=== PATIENT | male | born 1990 | race Caucasian/White ===

== ENCOUNTER → 2017-09-16 14:42 | Outpatient (CLI) | payer SELFPAY ==
[2017-09-16 17:52] LABS: Hematocrit 45.8 % (40-54); Hemoglobin 15.9 g/dl (13.0-16.5); Mean Corp Hgb Conc 34.7 g/gl (32-36); Mean Corpuscular Hgb 32.4 pg (27.0-32.0); Mean Corpuscular Volume 93.5 fL (80-94); Mean Platelet Vol. 9.7 fl (6.2-12.0); Platelet Count 287 K/mm3 (150-450); RBC Distribution Width CV 13.3 % (11.6-14.6); RBC Distribution Width SD 45.5 fl (35.1-43.9); White Blood Count 11.6 K/mm3 (4.4-11.0)
[2017-09-16 17:56] LABS: Scan Indicated on CBC? Y/N NO
[2017-09-16 19:12] LABS: Albumin, Serum 3.9 g/dL (3.2-5.0); BUN 14 mg/dL (7-18); BUN/Creat Ratio 19.7 RATIO (10-20); Calcium,Total 8.8 mg/dL (8.5-10.1); Chloride 104 mmol/L (98-107); Creatinine, Serum 0.71 mg/dL (0.70-1.30); EST Glomerular Filtration Rate 142 mL/min (>60); Est Glom Filt Rate - Afr Amer 172 mL/min (>60); Glucose 100 mg/dL (74-106); Phosphorus 4.4 mg/dL (2.5-4.9); Potassium 3.5 mmol/L (3.5-5.1); Sodium Level 140 mmol/L (136-145)
[2017-09-17 04:52] LABS: 24HR. UA Prot. Total Volume 3000 mL
== END ==
PROVIDERS: Family Provider Family Medicine; PCP Family Medicine; Visit Provider Internal Medicine Nephrology
DX: N04.9 Nephrotic syndrome with unspecified morphologic changes (principal)
CPT/HCPCS: 36415; 80069; 84156; 85027

== ENCOUNTER → 2017-12-22 13:43 | Outpatient (CLI) | payer SELFPAY ==
[2017-12-22 14:27] LABS: Protein, Urine (Random) 12.7 mg/dL (<11.9); Protein:Creat Ratio 103 mg/g CRE (0-200)
[2017-12-22 15:05] LABS: Albumin, Serum 3.7 g/dL (3.2-5.0); BUN 13 mg/dL (7-18); BUN/Creat Ratio 13.3 RATIO (10-20); Calcium,Total 8.2 mg/dL (8.5-10.1); Chloride 108 mmol/L (98-107); Cholesterol 128 mg/dL (200); Creatinine, Serum 0.98 mg/dL (0.70-1.30); EST Glomerular Filtration Rate 98 mL/min (>60); Est Glom Filt Rate - Afr Amer 119 mL/min (>60); Glucose 168 mg/dL (74-106); High Density Lipoprotein 42 mg/dL; Phosphorus 3.1 mg/dL (2.5-4.9); Potassium 3.6 mmol/L (3.5-5.1); Sodium Level 142 mmol/L (136-145); Triglycerides 177 mg/dL; Very Low Density Lipoprotein 35 mg/dL (5-40)
[2017-12-22 15:09] LABS: Hemoglobin A1c 7.2 % (4.2-6.3)
== END ==
PROVIDERS: Nurse Practitioner; Family Provider Family Medicine; PCP Family Medicine; Visit Provider Internal Medicine Nephrology
DX: E10.9 Type 1 diabetes mellitus without complications (principal); E78.5 Hyperlipidemia, unspecified; N04.0 Nephrotic syndrome with minor glomerular abnormality
CPT/HCPCS: 36415; 80061; 80069; 82570; 83036; 84156

== ENCOUNTER → 2018-02-16 16:21 | Outpatient (CLI) | payer SELFPAY ==
[2018-02-16 18:11] LABS: Protein, Urine (Random) 1125.6 mg/dL (<11.9); Protein:Creat Ratio 7215 mg/g CRE (0-200)
== END ==
PROVIDERS: Family Provider Family Medicine; PCP Family Medicine; Visit Provider Internal Medicine Nephrology
DX: N04.9 Nephrotic syndrome with unspecified morphologic changes (principal)
CPT/HCPCS: 82570; 84156

== ENCOUNTER → 2018-04-09 14:29 | Outpatient (CLI) | payer SELFPAY ==
[2018-04-09 15:33] LABS: Protein, Urine (Random) 13.7 mg/dL (<11.9); Protein:Creat Ratio 98 mg/g CRE (0-200)
== END ==
PROVIDERS: Family Provider Family Medicine; PCP Family Medicine; Referring Provider Internal Medicine Nephrology; Visit Provider Internal Medicine Nephrology
DX: N04.0 Nephrotic syndrome with minor glomerular abnormality (principal)
CPT/HCPCS: 82570; 84156

== ENCOUNTER → 2018-06-25 14:48 | Outpatient (CLI) | payer SELFPAY ==
[2018-06-25 16:14] LABS: Anion Gap 7 (5-15); BUN 14 mg/dL (7-18); BUN/Creat Ratio 15.7 RATIO (10-20); Calcium,Total 8.6 mg/dL (8.5-10.1); Chloride 106 mmol/L (98-107); Creatinine, Serum 0.89 mg/dL (0.70-1.30); EST Glomerular Filtration Rate 109 mL/min (>60); Est Glom Filt Rate - Afr Amer 132 mL/min (>60); Glucose 127 mg/dL (74-106); Potassium 3.9 mmol/L (3.5-5.1); Sodium Level 142 mmol/L (136-145)
[2018-06-25 16:24] LABS: Protein, Urine (Random) 8.2 mg/dL (<11.9); Protein:Creat Ratio 99 mg/g CRE (0-200)
== END ==
PROVIDERS: Family Provider Family Medicine; PCP Family Medicine; Referring Provider Internal Medicine Nephrology; Visit Provider Internal Medicine Nephrology
DX: N04.9 Nephrotic syndrome with unspecified morphologic changes (principal)
CPT/HCPCS: 36415; 80048; 82570; 84156

== ENCOUNTER → 2018-07-16 14:24 | Outpatient (CLI) | payer SELFPAY ==
[2018-07-13 14:22] VITALS: BMI 26.2
[2018-07-16 15:26] LABS: Anion Gap 6 (5-15); BUN 43 mg/dL (7-18); BUN/Creat Ratio 42.6 RATIO (10-20); Calcium,Total 7.5 mg/dL (8.5-10.1); Chloride 105 mmol/L (98-107); Creatinine, Serum 1.01 mg/dL (0.70-1.30); EST Glomerular Filtration Rate 94 mL/min (>60); Est Glom Filt Rate - Afr Amer 114 mL/min (>60); Glucose 261 mg/dL (74-106); Potassium 5.3 mmol/L (3.5-5.1); Sodium Level 137 mmol/L (136-145)
[2018-07-19 09:22] LABS: Protein:Creat Ratio 8070 mg/g CRE (0-200)
== END ==
PROVIDERS: Family Provider Family Medicine; PCP Family Medicine; Referring Provider Internal Medicine Nephrology; Visit Provider Internal Medicine Nephrology
DX: N04.9 Nephrotic syndrome with unspecified morphologic changes (principal)
CPT/HCPCS: 36415; 80048; 82570; 84156

== ENCOUNTER → 2018-07-19 14:58 | Outpatient (CLI) | payer SELFPAY ==
[2018-07-13 14:22] VITALS: BMI 26.2
[2018-07-19 16:21] LABS: Anion Gap 8 (5-15); BUN 63 mg/dL (7-18); BUN/Creat Ratio 54.8 RATIO (10-20); Calcium,Total 7.7 mg/dL (8.5-10.1); Chloride 104 mmol/L (98-107); Creatinine, Serum 1.15 mg/dL (0.70-1.30); EST Glomerular Filtration Rate 81 mL/min (>60); Est Glom Filt Rate - Afr Amer 98 mL/min (>60); Glucose 195 mg/dL (74-106); Potassium 4.7 mmol/L (3.5-5.1); Sodium Level 139 mmol/L (136-145)
== END ==
PROVIDERS: Family Provider Family Medicine; PCP Family Medicine; Referring Provider Internal Medicine Nephrology; Visit Provider Internal Medicine Nephrology
DX: E87.5 Hyperkalemia (principal)
CPT/HCPCS: 36415; 80048

== ENCOUNTER → 2018-07-21 14:02 | Outpatient (CLI) | payer SELFPAY ==
[2018-07-13 14:22] VITALS: BMI 26.2
[2018-07-21 17:44] LABS: Albumin, Serum 1.5 g/dL (3.2-5.0); BUN 76 mg/dL (7-18); BUN/Creat Ratio 37.1 RATIO (10-20); Calcium,Total 7.9 mg/dL (8.5-10.1); Chloride 101 mmol/L (98-107); Creatinine, Serum 2.05 mg/dL (0.70-1.30); EST Glomerular Filtration Rate 42 mL/min (>60); Est Glom Filt Rate - Afr Amer 50 mL/min (>60); Glucose 262 mg/dL (74-106); Phosphorus 5.3 mg/dL (2.5-4.9); Potassium 4.9 mmol/L (3.5-5.1); Sodium Level 134 mmol/L (136-145)
--- OUTSIDE RECORDS SUMMARY | 2018-09-25 11:10 | XMS RPT_ITS ---
:1990 Author Organization OHIP Support Name Relationship Address Phone BUETC Unavailable [address] + [place] [address] ANTHONY, DANIELLA Unavailable [address] + [place] [address] [employer] Unavailable [address] + [place] [address] ANTHONYRADHAA Unavailable [address] + [place] [address] [employer] Unavailable [address] + [place] [address] ANTHONYRADHAA Unavailable [address] + [place] [address] [employer] Unavailable [address] + [place] [address] ANTHONYRADHAA Unavailable [address] + [place] [address] [employer] Unavailable [address] + [place] [address] ANTHONYRADHAA Unavailable [address] + [place] [address] [employer] Unavailable [address] + [place] [address] ANTHONYRADHAA Unavailable [address] + [place] [address] [employer] Unavailable [address] + [place] [address] ANTHONYRADHAA Unavailable [address] + [place] [address] [employer] Unavailable [address] + [place] [address] DANIELLA ROCKWELL Unavailable [address] + [place] [address] [employer] Unavailable [address] + [place] [address] DANIELLA ROCKWELL Unavailable [address] + [place] [address] [employer] Unavailable [address] + [place] [address] ANTHONY, DANIELLA Unavailable [address] + [place] [address] [employer] Unavailable [address] + [place] [address] ANTHONY, DANIELLA Unavailable [address] + [place] [address] [employer] Unavailable [address] + [place] [address] ANTHONY, DANIELLA Unavailable [address] + [place] [address] Care Team Providers Name Role Phone Ander, Lissy Attending Unavailable Antonio, Timothy Primary Care Unavailable Ander, Lissy Referring Unavailable Brooke Mendoza NURSE CONSULTANT-C Attending Unavailable Antonio, Timothy Referring Unavailable Ander, Lissy Attending Unavailable Antonio, Timothy Primary Care Unavailable Ander, Lissy Referring Unavailable Ander, Lissy Attending Unavailable Antonio, Timothy Primary Care Unavailable Ander, Lissy Attending Unavailable Ander, Lissy Referring Unavailable Antonio, Timothy Primary Care Unavailable Ander, Lissy Attending Unavailable Antonio, Timothy Primary Care Unavailable Brooke Mendoza NURSE CONSULTANT-C Attending Unavailable Antonio, Timothy Referring Unavailable Antonio, Timothy Primary Care Unavailable Ander, Lissy Attending Unavailable Antonio, Timothy Primary Care Unavailable Ander, Lissy Referring Unavailable Ander, Lissy Attending Unavailable Antonio, Timothy Primary Care Unavailable Ander, Lissy Referring Unavailable Ander, Lissy Attending Unavailable Antonio, Timothy Primary Care Unavailable Ander, Lissy Attending Unavailable Antonio, Timothy Primary Care Unavailable Ander, Lissy Referring Unavailable Ander, Lissy Attending Unavailable Antonio, Timothy Primary Care Unavailable Ander, Lissy Referring Unavailable PROBLEMS PROBLEMS DATE TYPE CONDITION / CODE ATTENDING STATUS SOURCE 07/21/2018 Unknown E87.5 - Alvaro Worthingtonine Active [place] Hyperkalemia / Community E87.5(ICD-10) Hospital Repository 07/13/2018 Unknown E10.9 - Type 1 Brooke Mendoza Active [facility] diabetes mellitus NURSE CONSULTANT-C Community without Hospital complications / Repository E10.9(ICD-10) 04/09/2018 Unknown 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 criteria. Please note revised GLUCOSE reference range effective 2017. LAB L501.1000 7-18 mg/dL High alert BUN 121 Result Comment: Critical Result(s) Called DR. Padilla [place] at: 17:57:15 07/26/2018 by: MARCO STATON LAB L501.1100 0.70-1.30 mg/dL CREAT,SERUM High 1.43 Result Comment: The validity of the calculated GFR AND GFRAA in patients over 70 years has not been determined. Clinical correlation is essential. LAB L501.1110 >60 mL/min Normal EST GFR 63 Result Comment: Non- GFR Calc LAB L501.1115 >60 mL/min Normal EST GFR - AA 76 Result Comment: GFR Calc LAB L501.1300 10-20 RATIO High BUN/CRE 84.6 LAB L501.1800 3.2-5.0 g/dL Low ALB 1.3 LAB L501.2200 8.5-10.1 mg/dL Low CA 7.6 LAB L501.2300 2.5-4.9 mg/dL Normal PHOS 4.8 LAB L501.5300 136-145 mmol/L Low NA 134 LAB L501.5600 3.5-5.1 mmol/L K Normal 4.1 LAB L501.5900 98-107 mmol/L CL Normal 101 LAB L501.6100 21.0-32.0 mmol/L Normal CO2 23.0 Performed By: #### L500.3600 #### [facility] [address] [place], [address] RENAL PROFILE Collected: 07/21/2018 Status: F Source: [place] 2:04 PM [facility] REPOSITORY TYPE CODE TESTS RESULT OUT OF RANGE REFERENCE UNITS LAB L501.0100 74-106 mg/dL High GLU 262 Result Comment: Glucose result greater than or equal to 200 mg/dL suggests DIABETES MELLITUS per A.D.A. criteria. Please note revised GLUCOSE reference range effective 2017. LAB L501.1000 7-18 mg/dL High BUN 76 LAB L501.1100 0.70-1.30 mg/dL High CREAT,SERUM 2.05 Result Comment: The validity of the calculated GFR AND GFRAA in patients over 70 years has not been determined. Clinical correlation is essential. LAB L501.1110 >60 mL/min Low EST GFR 42 Result Comment: Non- GFR Calc LAB L501.1115 >60 mL/min Low EST GFR - AA 50 Result Comment: GFR Calc LAB L501.1300 10-20 RATIO High BUN/CRE 37.1 LAB L501.1800 3.2-5.0 g/dL Low ALB 1.5 LAB L501.2200 8.5-10.1 mg/dL Low CA 7.9 LAB L501.2300 2.5-4.9 mg/dL High PHOS 5.3 LAB L501.5300 136-145 mmol/L Low NA 134 LAB L501.5600 3.5-5.1 mmol/L K Normal 4.9 LAB L501.5900 98-107 mmol/L CL Normal 101 LAB L501.6100 21.0-32.0 mmol/L Normal CO2 23.0 Performed By: #### L500.3600 #### [facility] [address] [place], [address] BASIC METABOLIC Collected: 07/19/2018 Status: F Source: [place] PROFILE (BMP) 3:18 PM [facility] REPOSITORY TYPE CODE TESTS RESULT OUT OF RANGE REFERENCE UNITS LAB L501.0100 74-106 mg/dL High GLU 195 Result Comment: Fasting Glucose result greater than or equal to 126 mg/dL suggests DIABETES MELLITUS per A.D.A. criteria. Please note revised GLUCOSE reference range effective 2017. LAB L501.1000 7-18 mg/dL High BUN 63 LAB L501.1100 0.70-1.30 mg/dL Normal CREAT,SERUM 1.15 Result Comment: The validity of the calculated GFR AND GFRAA in patients over 70 years has not been determined. Clinical correlation is essential. LAB L501.1110 >60 mL/min Normal EST GFR 81 Result Comment: Non- GFR Calc LAB L501.1115 >60 mL/min Normal EST GFR - AA 98 Result Comment: GFR Calc LAB L501.1300 10-20 RATIO High BUN/CRE 54.8 LAB L501.2200 8.5-10.1 mg/dL Low CA 7.7 LAB L501.5300 136-145 mmol/L NA Normal 139 LAB L501.5600 3.5-5.1 mmol/L K Normal 4.7 LAB L501.5900 98-107 mmol/L CL Normal 104 LAB L501.6100 21.0-32.0 mmol/L Normal CO2 27.0 LAB L501.6200 5-15 Normal GAP 8 Performed By: #### L500.2500 #### [facility] [address] [place], [address] BASIC METABOLIC Collected: 07/16/2018 Status: F Source: [place] PROFILE ([facility]) 2:28 PM [facility] REPOSITORY TYPE CODE TESTS RESULT OUT OF RANGE REFERENCE UNITS LAB L501.0100 74-106 mg/dL High GLU 261 Result Comment: Glucose result greater than or equal to 200 mg/dL suggests DIABETES MELLITUS per A.D.A. criteria. Please note revised GLUCOSE reference range effective 2017. LAB L501.1000 7-18 mg/dL High BUN 43 LAB L501.1100 0.70-1.30 mg/dL Normal CREAT,SERUM 1.01 Result Comment: The validity of the calculated GFR AND GFRAA in patients over 70 years has not been determined. Clinical correlation is essential. LAB L501.1110 >60 mL/min Normal EST GFR 94 Result Comment: Non- GFR Calc LAB L501.1115 >60 mL/min Normal EST GFR - AA 114 Result Comment: GFR Calc LAB L501.1300 10-20 RATIO High BUN/CRE 42.6 LAB L501.2200 8.5-10.1 mg/dL Low CA 7.5 LAB L501.5300 136-145 mmol/L NA Normal 137 LAB L501.5600 3.5-5.1 mmol/L High K 5.3 LAB L501.5900 98-107 mmol/L CL Normal 105 LAB L501.6100 21.0-32.0 mmol/L Normal CO2 26.0 LAB L501.6200 5-15 Normal GAP 6 Performed By: #### L500.2500 #### [facility] [address] [place], [place], [address] PROTEIN+CREATININE Collected: Status: C Source: [place] RATIO,URINE 07/16/2018 2:28 PM [facility] REPOSITORY TYPE CODE TESTS RESULT OUT OF RANGE REFERENCE UNITS LAB L501.1200 NO RANGE EST. mg/dL Normal UR CREAT 444.00 LAB L501.1930 <11.9 mg/dL High 3583.7 PROTEIN,UR.R AN. Result Comment: AMENDED REPORT 07/19/18 1522 PROTEIN,UR.RAN. previously reported as: 3583.7 H mg/dL UNABLE TO RESULT DUE TO INTERFERENCE LAB L501.1940 0-200 mg/g CRE High PROT:CRE RATIO 8070 Result Comment: AMENDED REPORT 07/19/18 0922 PROT:CRE RATIO previously reported as: Test not performed mg/g CRE Performed By: #### L501.0900 #### [facility] [address] [place], [place], [address] ENDOCRINOLOGY VISIT Observed: 07/13/2018 Status: F Source: [place] REPORT 3:10 PM [facility] REPOSITORY [facility] [address] [place] [address] OFFICE VISIT Date of Service: 07/13/18 MR#: [id number] Acct: [id number] Name: LORRIE ROCKWELL Rep #: [id number] : 1990 Provider: Brooke Mendoza NP Age/Sex: 28/M Location: [facility] Status: Signed HPI History of present illness Pipe Rockwell is a 28 year old male who presents for diabetes type 1. Diagnosed 4 years ago. Was seeing someone in [place] but does not wish to drive that far and is private pay. Currently taking levemir 20 units in am and 15 in pm. Meal insulin 8-10 units. He is on prednisone therapy due to kidney disease but his dose is down to 10mg. Was started originally at 40mg approximately 4 months ago. Reports currently he is having low BG readings in the afternoon around 2-4pm. 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 At time of visit: -Pt denies symptoms of hypertensive emergency (CP,SOB,CASTELAN, or blurred vision) and hypotension(dizziness or lightheadedness) -Pt denies symptoms of hypoglycemia ( sweaty, confusion, anxiety, tremor, hunger, palpitations) and hyperglycemia ( polydipsia, polyuria) -Pt denies potential medication adverse effect. Hypoglycemia Aware of hypoglycemia: yes Able to self treat low BG: Yes Frequent low Blood sugar: No Has supply of glucagon: No He denies excessive thirst, increased frequency of urination, chest pain or dyspnea. Follows a diabetic diet, Is compliant with medication and is tolerating without side effects. SMBG Checks 4-6 times daily 70-180 Diet 3 meals No carb counting Type: type 1, insulin-requiring Glucose control symptoms: Reports hypoglycemic with activity Weight and fatigue symptoms: Denies snoring Cardiopulmonary symptoms: Denies chest pain at rest, dyspnea on exertion, lightheadedness or myalgias GI symptoms: Denies constipation, diarrhea, nausea/dyspepsia or vomiting Skin and extremity symptoms: Denies erectile dysfunction or tingling/numbness/burning Other symptoms: Denies blurry vision or change in vision Pertinent visit history: Denies recent visit to ER or recent 911 calls Self monitoring: Yes Diabetes education in past year: Yes Glucose testing: demonstrates correct use of meter, understands testing schedule Sick day education - understands ketone testing: Yes Physical activity: regular Exam Const General: comfortable, no acute distress Nutritional Appearance: well nourished Orientation: oriented x3 HENMT Head: normal to inspection, atraumatic Ears: hearing grossly normal bilaterally Mouth: oral mucosae normal, moist mucous membranes abnormal Teeth and gingiva: dentition normal Eyes General: appearance normal, both eyes and all related structures Eyelids: eyelids normal Conjunctivae: conjunctivae normal Sclera: sclerae normal Pupils: PERRL Resp Effort AND Inspection: normal respiratory effort, able to speak in complete sentences, symmetric chest movement Auscultation: Bilateral: Clear to Auscultation Cardio Rate: regular rate Rhythm: regular rhythm Heart Sounds: S1 normal, S2 normal, no gallops, no murmurs, no rubs GI Inspection: normal to inspection Auscultation: normal bowel sounds Palpation: soft, no guarding Skin General: no rashes or lesions noted Wounds: no wounds Diabetic Foot Pulses: L dorsalis pedis pulse: normal, R dorsalis pedis pulse: normal Monofilament test: Left foot: normal, Right foot: normal Neuro General: moves all extremities Cognition: normal cognition Speech: speech normal Extrem General: normal to inspection, normal capillary refill, no edema Psych Appearance: well kempt Mood: congruent mood Affect: normal affect Speech and Movement: speech and movement normal Attitude: cooperative Thought Process: normal Thought Content: normal Judgment: judgment good Type: type 1, insulin-requiring Glucose control symptoms: Reports hypoglycemic with activity Weight and fatigue symptoms: Reports weight gain; denies snoring Cardiopulmonary symptoms: Denies chest pain at rest, dyspnea on exertion, lightheadedness or myalgias GI symptoms: Denies constipation, diarrhea, nausea/dyspepsia or vomiting Skin and extremity symptoms: Denies erectile dysfunction Other symptoms: Denies blurry vision or change in vision Pertinent visit history: Denies recent visit to ER, recent hospital admission or recent 911 calls Percentage of fasting blood glucose within goal: >50% of the time Dietary compliance: Diabetes: good Diabetes education in past year: Yes Glucose testing: demonstrates correct use of meter Sick day education - understands ketone testing: Yes Physical activity: regular Intake Vital Signs07/13/18 Height 5 ft 11 in 07/13/18 Weight: 188 lb 4 oz 07/13/18 Body Mass Index (BMI) 26.2 07/13/18 Blood Pressure 141/78 H 07/13/18 Blood Pressure Location Lt popliteal 07/13/18 Blood Pressure Position Sitting Intake Visit Reasons: Diabetes follow-up [employer] Required: No Accompanied by: Self Allergies No Known Allergies Allergy (Verified 07/13/18 14:19) Medications Lisinopril [Zestril] 10 mg PO DAILY #30 tab 06/02/16 [Rx Confirmed 07/13/18] cyclosporine 100 mg capsule 100 mg PO DAILY cap 07/13/18 [History Confirmed 07/13/18] insulin detemir (U- 100) 100 unit/mL subcutaneous solution See Rx Instructions SC BID ml 07/13/18 [History Confirmed 07/13/18] insulin lispro (U- 100) 100 unit/mL subcutaneous solution See Rx Instructions SC TID ml 07/13/18 [History Confirmed 07/13/18] Nurse's Note: blood sugars : low : 55 high : 205 [facility] Medical History Diabetes mellitus type 1 (Acute) Kidney disease (Acute) Seasonal allergies (Acute) Family History Father Arthritis Heart disease Hypertension Kidney stones Mother Arthritis Social History Smoking Status: Never smoker second hand exposure: No alcohol intake: current substance use type: does not use ROS Const Constitutional: No anorexia, body ache, chills, fatigue, fever(s), frequent falls, decreased energy, malaise, night sweats, weakness, weight change, sleep problems, abnormal sleep pattern, change in appetite, other, headache(s), snoring or excessive sweating Eyes Eyes: No blurry vision, change in vision, double vision, discharge, dry eyes, bulging eyes, floaters, visual disturbances, eye pain, light sensitivity, spots in vision, tunnel vision or other ENT ENT: Positive for nasal congestion and nasal discharge; no abnormal hearing, ear pain, ear discharge, ear pressure, hearing loss, tinnitus, dizziness/vertigo, balance problems, nosebleed/epistaxis, nasal obstruction, nose pain, sinus pressure, sinus pain, post nasal drip, headache(s), facial pain, dental pain, dry mouth, bad breath, hoarseness, lip swelling, mouth lesions, mouth pain, sore throat, tongue swelling, throat swelling, other, difficulty swallowing or neck pain Resp Respiratory: Positive for cough; no change in phlegm color, chest congestion, excessive phlegm production, hemoptysis, pain on inspiration, shortness of breath, pain with cough, snoring, stridor, wheezing or other Cardio Cardiology: No chest pain at rest, chest pain with exertion, leg pain with exertion, excessive sweating, shortness of breath, dyspnea on exertion, generalized swelling, irregular heart rhythm, lightheadedness, orthopnea, radiating jaw, neck or arm pain, fast heart rate, slow heart rate, palpitations or other Gastro GI: No abdominal pain, belching, bloating, change in bowel habits, change in stool character, coffee ground emesis, constipation, cramping, diarrhea, heartburn, difficulty swallowing, feeling full early, excessive flatus, incontinent of stools, Vomiting blood/hematemesis, blood in stool, loose stools, Black,tarry stools, nausea/dyspepsia, pain with swallowing, vomiting or other Genitourinary Male: No difficulty urinating, burning urination, painful urination, urinary incontinence, urinary frequency, urinary urgency, urinary hesitancy, urinary retention, blood in urine, Frequent nighttime urination/ nocturia, post void dribbling, suprapubic fullness, side pain, sexual problems, genital lesions, genital itching, erectile dysfunction, penile discharge, difficulty with ejaculations, blood in semen, scrotal swelling, testicle lump, testicle pain or other Musc Musculoskeletal: No abnormal walking, joint pain, back pain, deformity, joint swelling, limited range of motion, loss of height, muscle cramps, muscle weakness, decreased muscle mass, body aches, neck pain, numbness, radiating pain into limb, stiffness, tingling or other Skin Skin: No acne, hair loss, change in hair, nail changes, boil, change in skin color, dry skin, redness, excessive hair growth, yellowing of the skin, lesions, itching, rash, skin pain, skin ulcer, sores, skin swelling, wounds or other Breast Breast: No other Neuro Neurology: No frequent falls, weakness, visual disturbances, abnormal hearing, headache(s), abnormal walking, numbness or tingling Psych Psychiatric: No abnormal sleep pattern, No change in appetite Endo Endocrine: No fatigue, other or excessive sweating Aller/Imm Allergy/Immunologic: No lip swelling, tongue swelling, throat swelling, wheezing or itchy eyes Assessment AND Plan 1. Type 1 diabetes mellitus without long-term current use of insulin E10.9 Plan Patient brings BG well documented. Checking 3 times daily with BG between 70-180. Reports he continues to see Dr. Worthington for renal issues. Has used prednisone taper for his kidneys and this has caused elevated BG readings. Will update A1c. Enc to continue to [facility] BG, diet, and activity. Control portions Food selections should be healthy Choose more low carb vegetables Avoid snacks and desserts. Drink water Exercise daily Eat more fresh foods, not canned or processed Eat more slowly Orders Orders: Plan Detail Other Medications New: Additional Comments 1. Please schedule follow up in 3 months. 2. Lab work one week before appointment. 3. Discussed importance of regular exercise and recommend starting or continuing a regular exercise program for good health. 4. The patient was encouraged to lose weight for good health 5. The importance of monitoring blood sugar regularly was reviewed. 6. The importance of monitoring the HBA1c level regularly was reviewed. 7. The importance of prper foot care and regularly checking feet to prevent sores and loss of limbs was reviewed. 8. The importance of keeping BP at or below 130/80 to prevent stroke, heart attacks, kidney failure, blindness was reviewed. Spent approximately 10 minutes with patient with over 50% of time spent in discussion and counseling regarding medication adjustment, symptoms and treatment of hypoglycemia, diet adherence, and checking BG before driving. Coding Level of Care Code Off vis,est,level 1 Diagnoses Type 1 diabetes mellitus without long-term current use of insulin E10.9 07/13/18 1510 <Electronically signed by Brooke WOODS> Date Brooke WOODS Cosigner Signature: Date (if applicable) CC: BASIC METABOLIC Collected: 06/25/2018 Status: F Source: [place] PROFILE (BMP) 2:51 PM [facility] REPOSITORY TYPE CODE TESTS RESULT OUT OF RANGE REFERENCE UNITS LAB L501.0100 74-106 mg/dL High GLU 127 Result Comment: Fasting Glucose result greater than or equal to 126 mg/dL suggests DIABETES MELLITUS per A.D.A. criteria. Please note revised GLUCOSE reference range effective 2017. LAB L501.1000 7-18 mg/dL Normal BUN 14 LAB L501.1100 0.70-1.30 mg/dL Normal CREAT,SERUM 0.89 Result Comment: The validity of the calculated GFR AND GFRAA in patients over 70 years has not been determined. Clinical correlation is essential. LAB L501.1110 >60 mL/min Normal EST GFR 109 Result Comment: Non- GFR Calc LAB L501.1115 >60 mL/min Normal EST GFR - AA 132 Result Comment: GFR Calc LAB L501.1300 10-20 RATIO Normal BUN/CRE 15.7 LAB L501.2200 8.5-10.1 mg/dL CA Normal 8.6 LAB L501.5300 136-145 mmol/L NA Normal 142 LAB L501.5600 3.5-5.1 mmol/L K Normal 3.9 LAB L501.5900 98-107 mmol/L CL Normal 106 LAB L501.6100 21.0-32.0 mmol/L Normal CO2 29.0 LAB L501.6200 5-15 Normal GAP 7 Performed By: #### L500.2500 #### [facility] [address] [place], [place], [id number] PROTEIN+CREATININE Collected: Status: F Source: [place] HICKEY,URINE 06/25/2018 2:51 PM [facility] REPOSITORY TYPE CODE TESTS RESULT OUT OF RANGE REFERENCE UNITS LAB L501.1200 NO RANGE EST. mg/dL Normal UR CREAT 82.70 LAB L501.1930 <11.9 mg/dL Normal 8.2 PROTEIN,UR.R AN. LAB L501.1940 0-200 mg/g CRE Normal PROT:CRE 99 RATIO Performed By: #### L501.0900 #### [facility] [address] [place], [place], [address] PROTEIN+CREATININE Collected: Status: F Source: [place] HICKEY,URINE 04/09/2018 2:32 PM [facility] REPOSITORY TYPE CODE TESTS RESULT OUT OF RANGE REFERENCE UNITS LAB L501.1200 NO RANGE EST. mg/dL Normal UR CREAT 140.00 LAB L501.1930 <11.9 mg/dL High 13.7 PROTEIN,UR.R AN. LAB L501.1940 0-200 mg/g CRE Normal PROT:CRE 98 RATIO Performed By: #### L501.0900 #### [facility] [address] [place], [address] PROTEIN+CREATININE Collected: Status: F Source: [place] HICKEYURINE 02/16/2018 4:37 PM [facility] REPOSITORY TYPE CODE TESTS RESULT OUT OF RANGE REFERENCE UNITS LAB L501.1200 NO RANGE EST. mg/dL Normal UR CREAT 156.00 LAB L501.1930 <11.9 mg/dL High 1125.6 PROTEIN,UR.R AN. LAB L501.1940 0-200 mg/g CRE High PROT:CRE 7215 RATIO Performed By: #### L501.0900 #### [facility] [address] [place], [address] PROTEIN+CREATININE Collected: Status: F Source: [place] HICKEY,URINE 12/22/2017 1:57 PM [facility] REPOSITORY TYPE CODE TESTS RESULT OUT OF RANGE REFERENCE UNITS LAB L501.1200 NO RANGE EST. mg/dL Normal UR CREAT 123.00 LAB L501.1930 <11.9 mg/dL High 12.7 PROTEIN,UR.R AN. LAB L501.1940 0-200 mg/g CRE Normal PROT:CRE 103 RATIO Performed By: #### L501.0900 #### [facility] [address] [place], [address] RENAL PROFILE Collected: 12/22/2017 Status: F Source: [place] 1:57 PM [facility] REPOSITORY Order Comment: PT NOT FASTING TYPE CODE TESTS RESULT OUT OF RANGE REFERENCE UNITS LAB L501.0100 74-106 mg/dL High GLU 168 Result Comment: Fasting Glucose result greater than or equal to 126 mg/dL suggests DIABETES MELLITUS per A.D.A. criteria. Please note revised GLUCOSE reference range effective 2017. LAB L501.1000 7-18 mg/dL Normal BUN 13 LAB L501.1100 0.70-1.30 mg/dL Normal CREAT,SERUM 0.98 Result Comment: The validity of the calculated GFR AND GFRAA in patients over 70 years has not been determined. Clinical correlation is essential. LAB L501.1110 >60 mL/min Normal EST GFR 98 Result Comment: Non- GFR Calc LAB L501.1115 >60 mL/min Normal EST GFR - AA 119 Result Comment: GFR Calc LAB L501.1300 10-20 RATIO Normal BUN/CRE 13.3 LAB L501.1800 3.2-5.0 g/dL Normal ALB 3.7 LAB L501.2200 8.5-10.1 mg/dL Low CA 8.2 LAB L501.2300 2.5-4.9 mg/dL Normal PHOS 3.1 LAB L501.5300 136-145 mmol/L NA Normal 142 LAB L501.5600 3.5-5.1 mmol/L K Normal 3.6 LAB L501.5900 98-107 mmol/L High CL 108 LAB L501.6100 21.0-32.0 mmol/L Normal CO2 28.0 Performed By: #### L500.3600, L500.4100 #### [facility] [address] [place], [address] LIPID PROFILE Collected: 12/22/2017 Status: F Source: [place] 1:57 PM [facility] REPOSITORY Order Comment: PT NOT FASTING TYPE CODE TESTS RESULT OUT OF RANGE REFERENCE UNITS LAB L501.4900 200 mg/dL Normal CHOL 128 Result Comment: <200 mg/dL Desirable 200-240 mg/dL Borderline >240 mg/dL High Risk LAB L501.5000 mg/dL Normal TRIG 177 Result Comment: The drugs N-Acetylcysteine and Metamizole may falsely depress this assay. Serum Triglycerides Reference Interval Normal <150 mg/dL Borderline high 150 - 199 mg/dL High 200 - 499 mg/dL Very High > or = 500 mg/dL LAB L501.6400 mg/dL Normal HDL 42 Result Comment: The drugs N-Acetylcysteine and Metamizole may falsely depress this assay. Reference Range HDL <40 mg/dL Low HDL Cholesterol HDL >or= 60 mg/dL High HDL Cholesterol LAB L501.6500 0-130 mg/dL Normal LDL 51 LAB L501.6600 5-40 mg/dL Normal VLDL 35 Performed By: #### L500.3600, L500.4100 #### [facility] [address] [place], [address] HEMOGLOBIN A1C Collected: 12/22/2017 Status: F Source: [place] 1:56 PM [facility] REPOSITORY TYPE CODE TESTS RESULT OUT OF RANGE REFERENCE UNITS LAB L501.9985 4.2-6.3 % High HGB A1C 7.2 Performed By: #### L501.9985 #### [facility] [address] [place], [address] ENDOCRINOLOGY VISIT Observed: 11/04/2017 Status: F Source: [place] REPORT 9:56 AM [facility] REPOSITORY [facility] [address] [place] [address] OFFICE VISIT Date of Service: 11/03/17 MR#: [id number] Acct: [id number] Name: LORRIE ROCKWELL Rep #: [id number] : 1990 Provider: Brooke Mendoza NP Age/Sex: 27/M Location: [facility] [place] [facility] Status: Signed HPI History of present illness Brain Anthony is a 27 year old male who presents for diabetes type 1. Diagnosed 4 years ago. Was seeing someone in [place] but does not wish to drive that far and is private pay. Currently taking 46 units of levemir daily and meal insulin 8-10 units. He is on prednisone therapy due to kidney disease but his dose is down to 10mg. Was started originally at 40mg approximately 4 months ago. Reports currently he is having low BG readings in the afternoon around 2-4pm. 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 At time of visit: -Pt denies symptoms of hypertensive emergency (CP,SOB,CASTELAN, or blurred vision) and hypotension(dizziness or lightheadedness) -Pt denies symptoms of hypoglycemia ( sweaty, confusion, anxiety, tremor, hunger, palpitations) and hyperglycemia ( polydipsia, polyuria) -Pt denies potential medication adverse effect. Hypoglycemia Aware of hypoglycemia: yes Able to self treat low BG: Yes Frequent low Blood sugar: No Has supply of glucagon: No He denies excessive thirst, increased frequency of urination, chest pain or dyspnea. Follows a diabetic diet, Is compliant with medication and is tolerating without side effects. SMBG Checks 4-6 times daily 60-180 Diet 3 meals No carb counting Type: type 1, insulin-requiring Glucose control symptoms: Reports hypoglycemic with activity Weight and fatigue symptoms: Denies snoring Cardiopulmonary symptoms: Denies chest pain at rest, dyspnea on exertion, lightheadedness or myalgias GI symptoms: Denies constipation, diarrhea, nausea/dyspepsia or vomiting Skin and extremity symptoms: Denies erectile dysfunction or tingling/numbness/burning Other symptoms: Denies blurry vision or change in vision Pertinent visit history: Denies recent visit to ER or recent 911 calls Self monitoring: Yes Diabetes education in past year: Yes Glucose testing: demonstrates correct use of meter, understands testing schedule Sick day education - understands ketone testing: Yes Physical activity: regular Exam Const General: comfortable, no acute distress Nutritional Appearance: well nourished Orientation: oriented x3 HENMT Head: normal to inspection, atraumatic Ears: hearing grossly normal bilaterally Mouth: oral mucosae normal, moist mucous membranes abnormal Teeth and gingiva: dentition normal Eyes General: appearance normal, both eyes and all related structures Eyelids: eyelids normal Conjunctivae: conjunctivae normal Sclera: sclerae normal Pupils: PERRL Resp Effort AND Inspection: normal respiratory effort, able to speak in complete sentences, symmetric chest movement Auscultation: Bilateral: Clear to Auscultation Cardio Rate: regular rate Rhythm: regular rhythm Heart Sounds: S1 normal, S2 normal, no gallops, no murmurs, no rubs GI Inspection: normal to inspection Auscultation: normal bowel sounds Palpation: soft, no guarding Skin General: no rashes or lesions noted Wounds: no wounds Diabetic Foot Pulses: L dorsalis pedis pulse: normal, R dorsalis pedis pulse: normal Monofilament test: Left foot: normal, Right foot: normal Neuro General: moves all extremities Cognition: normal cognition Speech: speech normal Extrem General: normal to inspection, normal capillary refill, no edema Psych Appearance: well kempt Mood: congruent mood Affect: normal affect Speech and Movement: speech and movement normal Attitude: cooperative Thought Process: normal Thought Content: normal Judgment: judgment good Intake Vital Signs11/03/17 Height 5 ft 11 in 11/03/17 Weight: 159 lb 2 oz 11/03/17 Body Mass Index (BMI) 22.1 11/03/17 Blood Pressure 112/70 05/01/18 Blood Pressure Location Lt popliteal 11/03/17 Blood Pressure Position Sitting Intake Visit Reasons: Diabetes [employer] Caster Required: No Accompanied by: Family / Other Is patient in pain?: No Allergies No Known Allergies Allergy (Verified 11/03/17 13:48) Medications Lisinopril [Zestril] 10 mg PO DAILY #30 tab 06/02/16 [Rx Confirmed 11/03/17] insulin detemir (U-100) 100 unit/mL subcutaneous solution 46 unit SC QDAY ml 11/03/17 [History Confirmed 11/03/17] insulin lispro (U-100) 100 unit/mL subcutaneous solution See Label Instructions SC TID ml 11/03/17 [History Confirmed 11/03/17] prednisone 10 mg tablet 10 mg PO QDAY 11/03/17 [History Confirmed 11/03/17] Nurse's Note: blood sugars : low : 55 high : 220 PFSH Medical History Diabetes mellitus type 1 (Acute) Kidney disease (Acute) Seasonal allergies (Acute) Family History Father Arthritis Heart disease Hypertension Kidney stones Mother Arthritis Social History Smoking Status: Never smoker second hand exposure: No alcohol intake: current substance use type: does not use ROS Const Constitutional: No anorexia, body ache, chills, fatigue, fever(s), frequent falls, decreased energy, malaise, night sweats, weakness, weight change, sleep problems, abnormal sleep pattern, change in appetite, other, headache(s), snoring or excessive sweating Eyes Eyes: Positive for other (05/22); no blurry vision, change in vision, double vision, discharge, dry eyes, bulging eyes, floaters, visual disturbances, eye pain, light sensitivity, spots in vision or tunnel vision ENT ENT: Positive for nasal congestion and nasal discharge; no abnormal hearing, ear pain, ear discharge, ear pressure, hearing loss, tinnitus, dizziness/vertigo, balance problems, nosebleed/epistaxis, nasal obstruction, nose pain, sinus pressure, sinus pain, post nasal drip, headache(s), facial pain, dental pain, dry mouth, bad breath, hoarseness, lip swelling, mouth lesions, mouth pain, sore throat, tongue swelling, throat swelling, other, difficulty swallowing or neck pain Resp Respiratory: No cough, change in phlegm color, chest congestion, excessive phlegm production, hemoptysis, pain on inspiration, shortness of breath, pain with cough, snoring, stridor, wheezing or other Cardio Cardiology: No chest pain at rest, chest pain with exertion, leg pain with exertion, excessive sweating, shortness of breath, dyspnea on exertion, generalized swelling, irregular heart rhythm, lightheadedness, orthopnea, radiating jaw, neck or arm pain, fast heart rate, slow heart rate, palpitations or other Gastro GI: No abdominal pain, belching, bloating, change in bowel habits, change in stool character, coffee ground emesis, constipation, cramping, diarrhea, heartburn, difficulty swallowing, feeling full early, excessive flatus, incontinent of stools, Vomiting blood/hematemesis, blood in stool, loose stools, Black,tarry stools, nausea/dyspepsia, pain with swallowing, vomiting or other Genitourinary Male: No difficulty urinating, burning urination, painful urination, urinary incontinence, urinary frequency, urinary urgency, urinary hesitancy, urinary retention, blood in urine, Frequent nighttime urination/ nocturia, post void dribbling, suprapubic fullness, side pain, sexual problems, genital lesions, genital itching, erectile dysfunction, penile discharge, difficulty with ejaculations, blood in semen, scrotal swelling, testicle lump, testicle pain or other Musc Musculoskeletal: No abnormal walking, joint pain, back pain, deformity, joint swelling, limited range of motion, loss of height, muscle cramps, muscle weakness, decreased muscle mass, body aches, neck pain, numbness, radiating pain into limb, stiffness, tingling or other Skin Skin: No acne, hair loss, change in hair, nail changes, boil, change in skin color, dry skin, redness, excessive hair growth, yellowing of the skin, lesions, itching, rash, skin pain, skin ulcer, sores, skin swelling, wounds or other Breast Breast: No other Neuro Neurology: No frequent falls, weakness, visual disturbances, abnormal hearing, headache(s), abnormal walking, numbness or tingling Psych Psychiatric: No abnormal sleep pattern, No change in appetite Endo Endocrine: No fatigue, other or excessive sweating Aller/Imm Allergy/Immunologic: No lip swelling, tongue swelling, throat swelling, wheezing or itchy eyes Assessment AND Plan 1. Type 1 diabetes mellitus without long-term current use of insulin E10.9 Plan Split levemir to 33 in am and 10 in pm Reduce lunch insulin by 1-2 units Correction 1-30 Check BG in pairs Carb counting RTC 4 months Orders Orders: Plan Detail Additional Comments 1. Please schedule follow up in 3 months. 2. Lab work one week before appointment. 3. Discussed importance of regular exercise and recommend starting or continuing a regular exercise program for good health. 4. The patient was encouraged to lose weight for good health 5. The importance of monitoring blood sugar regularly was reviewed. 6. The importance of monitoring the HBA1c level regularly was reviewed. 7. The importance of prper foot care and regularly checking feet to prevent sores and loss of limbs was reviewed. 8. The importance of keeping BP at or below 130/80 to prevent stroke, heart attacks, kidney failure, blindness was reviewed. Spent approximately 30 minutes with patient with over 50% of time spent in discussion and counseling regarding medication adjustment, symptoms and treatment of hypoglycemia, diet adherence, and checking BG before driving. Coding Level of Care Code Off vis,est,level 3 Diagnoses Type 1 diabetes mellitus without long-term current use of insulin E10.9 Time Spent (min) 30 Depression Screen PHQ-2/9 PHQ-2 Over the last 2 weeks, how often have you been bothered by any of the following problems? 1. Little interest or pleasure in doing things: not at all 2. Feeling down, depressed, or hopeless: not at all Total score: 0 If score is 2 or greater, continue Source: Developed by Drs. Hans Landaverde, Dianna Nur, Colby Marie and colleagues, with an educational garland from [employer]. Scoring: Total Score Depression Severity Action 1-4 Minimal depression No action needed 5-9 Mild depression Repeat PHQ-9 at follow up 10-14 Moderate depression Make tx plan,consider counseling, fup, prescription 11/04/17 0956 <Electronically signed by Brooke WOODS> Date Brooke WOODS Cosigner Signature: Date (if applicable) CC: CBC-COMPLETE BLOOD CNT Collected: 09/16/2017 Status: F Source: [place] NO DIFF 3:13 PM [facility] REPOSITORY TYPE CODE TESTS RESULT OUT OF RANGE REFERENCE UNITS LAB L100.1000 4.4-11.0 K/mm3 High WBC 11.6 LAB L100.1200 4.6-6.2 M/mm3 Normal RBC 4.90 LAB L100.1300 13.0-16.5 g/dl Normal HGB 15.9 LAB L100.1400 40-54 % Normal HCT 45.8 LAB L100.1500 80-94 fL Normal MCV 93.5 LAB L100.1600 27.0-32.0 pg High MCH 32.4 LAB L100.1700 32-36 g/gl Normal MCHC 34.7 LAB L100.1810 11.6-14.6 % Normal RDW CV 13.3 LAB L100.1820 35.1-43.9 fl High RDW SD 45.5 LAB L100.1900 150-450 K/mm3 Normal PLT 287 LAB L100.2000 6.2-12.0 fl Normal MPV 9.7 Performed By: #### L100.0500 #### [facility] [address] [place], [address] RENAL PROFILE Collected: 09/16/2017 Status: F Source: [place] 3:13 PM [facility] REPOSITORY TYPE CODE TESTS RESULT OUT OF RANGE REFERENCE UNITS LAB L501.0100 74-106 mg/dL Normal GLU 100 Result Comment: Slight Lipemia, Result may be falsely increased. Fasting Glucose result from 100 to 125 mg/dL suggests IMPAIRED HOMEOSTASIS per A.D.A. criteria. Please note revised GLUCOSE reference range effective 2017. LAB L501.1000 7-18 mg/dL Normal BUN 14 Result Comment: Slight Lipemia, Result may be falsely increased. LAB L501.1100 0.70-1.30 mg/dL CREAT,SERUM Normal 0.71 Result Comment: Slight Lipemia, Result may be falsely increased. The validity of the calculated GFR AND GFRAA in patients over 70 years has not been determined. Clinical correlation is essential. LAB L501.1110 >60 mL/min Normal EST GFR 142 Result Comment: Non- GFR Calc LAB L501.1115 >60 mL/min Normal EST GFR - AA 172 Result Comment: GFR Calc LAB L501.1300 10-20 RATIO Normal BUN/CRE 19.7 LAB L501.1800 3.2-5.0 g/dL Normal ALB 3.9 LAB L501.2200 8.5-10.1 mg/dL CA Normal 8.8 Result Comment: Slight Lipemia, Result may be falsely increased. LAB L501.2300 2.5-4.9 mg/dL Normal PHOS 4.4 Result Comment: Slight Lipemia, Result may be falsely increased. LAB L501.5300 136-145 mmol/L Normal NA 140 LAB L501.5600 3.5-5.1 mmol/L Normal K 3.5 Result Comment: Slight Hemolysis, Result may be falsely increased.-Slight Lipemia, Result may be falsely increased. LAB L501.5900 98-107 mmol/L Normal CL 104 LAB L501.6100 21.0-32.0 mmol/L Normal CO2 23.0 Result Comment: Slight Lipemia, Result may be falsely increased. Performed By: #### L500.3600 #### [facility] [address] [place], [place], [address] PROTEIN, URINE 24HR Collected: 09/16/2017 Status: F Source: [place] 3:13 PM [facility] REPOSITORY TYPE CODE TESTS RESULT OUT OF RANGE REFERENCE UNITS LAB L501.1850 24.0 HOURS Normal UR COLLECT 24.0 TIME LAB L501.1875 mL Normal UR TOTAL 3000 VOLUME LAB L501.1900 <11.9 mg/dL Normal URINE PROTEIN 6.0 LAB L501.1925 <150 MG/24HR mg/24HR High 24hr UR 180.0 PROTEIN Performed By: #### L500.9000 #### [facility] [address] [place], [place], [address] ALLERGIES ALLERGIES DATE TYPE / CODE NAME / CODE REACTION SEVERITY SOURCE 07/13/2018 Drug No Known Unknown [facility] Allergy/4160 Allergies/F00 Hospital 96082(SNOMED [id number](RXNOR Repository CT) M) ENCOUNTERS ENCOUNTERS ADMIT/DISCHARGE ACCOUNT ADMITTING ENCOUNTER LOCATION SOURCE NUMBER CLASS 07/26/2018 [id number] Ambulatory [place] [facility] Hospital ing:LAB Repository 07/21/2018 [id number] [facility] ing:POLAB3 Repository 07/19/2018 [id number] [facility] ing:LAB.FUTUR Repository E 07/16/2018 [id number] Ambulatory [facility] [place] 6 [facility] ing:LAB.FUTUR Repository E 07/13/2018/ [id number] Ambulatory BMSBuilding:B [place] 9 0 .[facility] Repository 06/25/2018 [id number] Ambulatory [place] [facility] 5 [facility] ing:LAB.FUTUR Repository E 04/09/2018 [id number] Ambulatory [facility] [place] 0 [facility] Hospital ing:LAB.FUTUR Repository E 02/16/2018 [id number] Ambulatory [place] 8 [facility] Hospital ing:LAB.FUTUR Repository E 02/15/2018 [id number] Ambulatory [place] [facility] 3 [facility] ing:LAB.FUTUR Repository E 12/22/2017 [id number] Ambulatory [place] 2 [facility] ing:LAB.FUTUR Repository E 11/03/2017/ [id number] Ambulatory BMSBuilding:B [place] 8 2 [place].[facility] Repository 09/16/2017 [id number] Ambulatory [facility] [place] 1 [facility] ing:LAB.FUTUR Repository E PAYERS PAYERS ENCOUNTER GUARANTOR PAYER SUBSCRIBER SOURCE 07/26/2018 LORRIE Salazar Primary NOT GIVENUNK [facility] [id number] Insurance:SELF PAY [facility] Number: Effective Repository , [place] [address]Dma: Date:2018-07-26 () 07/21/2018 LORRIE [place]azar Primary NOT GIVENUNK [place] [id number] Insurance:SELF PAY [facility] Number: Effective Repository , [place] [address]Nki: Date:2018-07-21 () 07/19/2018 LORRIE D Primary NOT GIVENUNK [place] [id number] Insurance:SELF PAY [facility] Number: Effective Repository , [place] [address]Dvo: Date:2018-07-19 () 07/16/2018 LORRIE D Primary NOT GIVENUNK [facility] [id number] Insurance:SELF PAY [facility] Number: Effective [place] , [place] [address]Rnq: Date:2018-04-19 () 07/13/2018 LORRIE D Primary NOT GIVENUNK [facility] [id number] Insurance:SELF PAY [facility] Number: Effective [place] , [place] [address]Elz: Date:2018-07-13 () 06/25/2018 LORRIE D Primary NOT GIVENUNK [facility] [id number] Insurance:SELF PAY [facility] Number: Effective [place]ository , [place] [address]Rfy: Date:2018-06-24 () 04/09/2018 LORRIE D Primary NOT GIVENUNK [place] [id number] Insurance:SELF PAY [facility] Number: Effective [place] , [place] [address]Nfe: Date:2018-03-16 () 02/16/2018 LORRIE D Primary NOT GIVENUNK [facility] [id number] Insurance:SELF PAY [facility] Number: Effective Repository , [place] [address]Ljr: Date:2018-02-15 () 02/15/2018 LORRIE Primary NOT GIVENUNK [facility] [id number] Insurance:SELF PAY [facility] Number: Effective [place] , [place] [address]Mhx: Date:2018-02-15 () 12/22/2017 LORRIE Primary NOT GIVENUNK [place] [id number] Insurance:SELF PAY [facility] Number: Effective [place] , [place] [address]Ddb: Date:2017-12-22 () 11/03/2017 LORRIE Primary NOT GIVENUNK [place] [id number] Insurance:SELF PAY [facility] Number: Effective [place] , [place] [address]Koo: Date:2017-11-03 ~330 -4 () 09/16/2017 Lorrie Primary NOT GIVENUNK [facility] [id number] Insurance:SELF PAY [facility] Number: Effective [place] , [place] [address]Pfl: Date:2017-09-07 ()
== END ==
PROVIDERS: Family Provider Family Medicine; PCP Family Medicine; Visit Provider Internal Medicine Nephrology
DX: E78.5 Hyperlipidemia, unspecified (principal)
CPT/HCPCS: 36415; 80069

== ENCOUNTER → 2018-07-26 15:06 | Outpatient (CLI) | payer SELFPAY ==
[2018-07-13 14:22] VITALS: BMI 26.2
[2018-07-26 17:56] LABS: Albumin, Serum 1.3 g/dL (3.2-5.0); BUN 121 mg/dL (7-18); BUN/Creat Ratio 84.6 RATIO (10-20); Calcium,Total 7.6 mg/dL (8.5-10.1); Chloride 101 mmol/L (98-107); Creatinine, Serum 1.43 mg/dL (0.70-1.30); EST Glomerular Filtration Rate 63 mL/min (>60); Est Glom Filt Rate - Afr Amer 76 mL/min (>60); Glucose 221 mg/dL (74-106); Phosphorus 4.8 mg/dL (2.5-4.9); Potassium 4.1 mmol/L (3.5-5.1); Sodium Level 134 mmol/L (136-145)
--- OUTSIDE RECORDS SUMMARY | 2018-09-28 03:31 | XMS RPT_ITS ---
:1990 Author Organization OHIP Support Name Relationship Address Phone [employer] Unavailable [address] + [place] [address] ANTHONY, DANIELLA Unavailable [address] + [place] [address] [employer] Unavailable [address] + [place] [address] ANTHONYRADHAA Unavailable [address] + [place] [address] [employer] Unavailable [address] + [place] [address] ANTHONYRADHAA Unavailable [address] + [place] [address] [employer] Unavailable [address] + [place] [address] ANTHONYRADHAA Unavailable [address] + [place] [address] [employer] Unavailable [address] + [place] [address] ANTHONYRADHAA Unavailable [address] + [place] [address] [employer] Unavailable [address] + [place] [address] ANTHONYRADHAA Unavailable [address] + [place] [address] [employer] Unavailable [address] + [place] [address] ANTHONYRADHAA Unavailable [address] + [place] [address] [employer] Unavailable [address] + [place] [address] DANIELLA ROCKWELL Unavailable [address] + [place] [address] [employer] Unavailable [address] + [place] [address] DANIELLA ROCKWELL Unavailable [address] + [facility] [place] [address] [employer] Unavailable [address] + [place] [address] ANTHONY, DANIELLA Unavailable [address] + [place] [address] [employer] Unavailable [address] + [place] [address] ANTHONY, DANIELLA Unavailable [address] + [place] [place] [address] [employer] Unavailable [address] + [place] [address] ANTHONY, DANIELLA Unavailable [address] + [place] [address] Care Team Providers Name Role Phone Ander, Lissy Attending Unavailable Ander, Lissy Referring Unavailable Antonio, Timothy Primary Care Unavailable Brooke Mendoza [employer]ADER-C Attending Unavailable Antonio, Timothy Referring Unavailable Antonio, Timothy Primary Care Unavailable Ander, Lissy Attending Unavailable Antonio, Timothy Primary Care Unavailable Ander, Lissy Referring Unavailable Brooke Mendoza [employer] TE[employer] LEADER-C Attending Unavailable Antonio, Timothy Referring Unavailable Ander, [...] E10.9 - Type 1 Brooke Mendoza Active [place] diabetes mellitus [employer] TE[employer] LEADER-C [facility] complications / Repository E10.9(ICD-10) 04/09/2018 Unknown N04.0 - Nephrotic Lissy Worthington Active [place] syndrome with minor [facility] abnormality / Repository N04.0(ICD-10) PROCEDURES PROCEDURES No Procedure Records FoundRESULTS RESULTS RENAL PROFILE Collected: 07/26/2018 Status: F Source: [place] 3:11 PM [facility] REPOSITORY TYPE CODE TESTS RESULT OUT [...] CO2 23.0 Performed By: #### L500.3600 #### [facility] [address] [place], [address] RENAL PROFILE Collected: 07/21/2018 Status: F Source: [place] 2:04 PM [facility] REPOSITORY TYPE CODE TESTS RESULT OUT OF [...] CO2 23.0 Performed By: #### L500.3600 #### [facility] [address] [place], [address] BASIC METABOLIC Collected: 07/19/2018 Status: F Source: [place] PROFILE (BMP) 3:18 PM [facility] REPOSITORY TYPE CODE TESTS RESULT OUT OF [...] GAP 8 Performed By: #### L500.2500 #### [facility] [address] [place], [address] BASIC METABOLIC Collected: 07/16/2018 Status: F Source: [place] PROFILE ([facility]) 2:28 PM [facility] REPOSITORY TYPE CODE TESTS RESULT OUT OF [...] GAP 6 Performed By: #### L500.2500 #### [facility] [address] [place], [place], [address] PROTEIN+CREATININE Collected: Status: C Source: [place] RATIO,URINE 07/16/2018 2:28 PM [facility] REPOSITORY TYPE CODE TESTS RESULT OUT OF [...] mg/g CRE Performed By: #### L501.0900 #### [facility] [address] [place], [place], [address] ENDOCRINOLOGY VISIT Observed: 07/13/2018 Status: F Source: [place] REPORT 3:10 PM [facility] REPOSITORY [facility] [address] [place] [address] OFFICE VISIT Date of Service: 07/13/18 MR#: [id number] Acct: [id number] Name: LORRIE ROCKWELL Rep #: [id number] : 1990 Provider: Brooke Mendoza NP Age/Sex: 28/M Location: [facility] Status: Signed HPI History of present illness Pipe Rockwell is a 28 year old male who presents for diabetes type 1. Diagnosed 4 years ago. Was seeing someone in [place] but does not wish to drive that [...] around 2-4pm. 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 Enc to continue to [facility] BG, diet, and activity. Control portions [...] F Source: [place] PROFILE (BMP) 2:51 PM [facility] REPOSITORY TYPE CODE TESTS RESULT OUT OF [...] GAP 7 Performed By: #### L500.2500 #### [facility] [address] [place], [place], [address] PROTEIN+CREATININE Collected: Status: F Source: [place] HICKEY,URINE 06/25/2018 2:51 PM [facility] REPOSITORY TYPE CODE TESTS RESULT OUT OF RANGE REFERENCE UNITS LAB L501.1200 NO RANGE EST. mg/dL Normal UR CREAT 82.70 LAB L501.1930 <11.9 mg/dL Normal 8.2 PROTEIN,UR.R AN. LAB L501.1940 0-200 mg/g CRE Normal PROT:CRE 99 RATIO Performed By: #### L501.0900 #### [facility] [address] [place], [place], [address] PROTEIN+CREATININE Collected: Status: F Source: [place] HICKEY,URINE 04/09/2018 2:32 PM [facility] REPOSITORY TYPE CODE TESTS RESULT OUT OF RANGE REFERENCE UNITS LAB L501.1200 NO RANGE EST. mg/dL Normal UR CREAT 140.00 LAB L501.1930 <11.9 mg/dL High 13.7 PROTEIN,UR.R AN. LAB L501.1940 0-200 mg/g CRE Normal PROT:CRE 98 RATIO Performed By: #### L501.0900 #### [facility] [address] [place], [address] PROTEIN+CREATININE Collected: Status: F Source: [place] HICKEYURINE 02/16/2018 4:37 PM [facility] REPOSITORY TYPE CODE TESTS RESULT OUT OF RANGE REFERENCE UNITS LAB L501.1200 NO RANGE EST. mg/dL Normal UR CREAT 156.00 LAB L501.1930 <11.9 mg/dL High 1125.6 PROTEIN,UR.R AN. LAB L501.1940 0-200 mg/g CRE High PROT:CRE 7215 RATIO Performed By: #### L501.0900 #### [facility] [address] [place], [address] PROTEIN+CREATININE Collected: Status: F Source: [place] HICKEY,URINE 12/22/2017 1:57 PM [facility] REPOSITORY TYPE CODE TESTS RESULT OUT OF RANGE REFERENCE UNITS LAB L501.1200 NO RANGE EST. mg/dL Normal UR CREAT 123.00 LAB L501.1930 <11.9 mg/dL High 12.7 PROTEIN,UR.R AN. LAB L501.1940 0-200 mg/g CRE Normal PROT:CRE 103 RATIO Performed By: #### L501.0900 #### [facility] [address] [place], [address] RENAL PROFILE Collected: 12/22/2017 Status: F Source: [place] 1:57 PM [facility] REPOSITORY Order Comment: PT NOT FASTING TYPE [...] 28.0 Performed By: #### L500.3600, L500.4100 #### [facility] [address] [place], [address] LIPID PROFILE Collected: 12/22/2017 Status: F Source: [place] 1:57 PM [facility] REPOSITORY Order Comment: PT NOT FASTING TYPE [...] 35 Performed By: #### L500.3600, L500.4100 #### [facility] [address] [place], [address] HEMOGLOBIN A1C Collected: 12/22/2017 Status: F Source: [place] 1:56 PM [facility] REPOSITORY TYPE CODE TESTS RESULT OUT OF RANGE REFERENCE UNITS LAB L501.9985 4.2-6.3 % High HGB A1C 7.2 Performed By: #### L501.9985 #### [facility] [address] [place], [address] ENDOCRINOLOGY VISIT Observed: 11/04/2017 Status: F Source: [place] REPORT 9:56 AM [facility] REPOSITORY [place] [facility] [address] [place] [address] OFFICE VISIT Date of Service: 11/03/17 MR#: [id number] Acct: [id number] Name: LORRIE ROCKWELL Rep #: [id number] : 1990 Provider: Brooke Mendoza NP Age/Sex: 27/M Location: [facility] Status: Signed HPI History of present illness Brain Anthony is a 27 year old male who presents for diabetes type 1. Diagnosed 4 years ago. Was seeing someone in [place] but does not wish to drive that [...] around 2-4pm. 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 Scoring: Total Score Depression Severity Action 1-4 Minimal depression No action needed 5-9 Mild depression Repeat PHQ-9 at follow up 10-14 Moderate depression Make tx plan,consider counseling, fup, prescription 11/04/17 0956 <Electronically signed by Brooke WOODS> Date Brooke WOODS Cosigner Signature: Date (if applicable) CC: CBC-COMPLETE BLOOD CNT Collected: 09/16/2017 Status: F Source: [place] NO DIFF 3:13 PM [facility] REPOSITORY TYPE CODE TESTS RESULT OUT OF [...] MPV 9.7 Performed By: #### L100.0500 #### [facility] [address] [place], [address] RENAL PROFILE Collected: 09/16/2017 Status: F Source: [place] 3:13 PM [facility] REPOSITORY TYPE CODE TESTS RESULT OUT OF [...] falsely increased. Performed By: #### L500.3600 #### [facility] [address] [place], [place], [address] PROTEIN, URINE 24HR Collected: 09/16/2017 Status: F Source: [place] 3:13 PM [facility] REPOSITORY TYPE CODE TESTS RESULT OUT OF RANGE REFERENCE UNITS LAB L501.1850 24.0 HOURS Normal UR COLLECT 24.0 TIME LAB L501.1875 mL Normal UR TOTAL 3000 VOLUME LAB L501.1900 <11.9 mg/dL Normal URINE PROTEIN 6.0 LAB L501.1925 <150 MG/24HR mg/24HR High 24hr UR 180.0 PROTEIN Performed By: #### L500.9000 #### [facility] [address] [place], [place], [address] ALLERGIES ALLERGIES DATE TYPE / CODE NAME / CODE REACTION SEVERITY SOURCE 07/13/2018 Drug No Known Unknown [facility] Allergy/4160 Allergies/F00 Hospital [address]15(SNOMED [id number](RXNOR Repository CT) M) ENCOUNTERS ENCOUNTERS ADMIT/DISCHARGE ACCOUNT ADMITTING ENCOUNTER LOCATION SOURCE NUMBER CLASS 07/26/2018 [id number] Ambulatory [place] 8 [facility] Hospital ing:LAB Repository 07/21/2018 [id number] [place] 1 [facility] ing:POLAB3 Repository 07/19/2018 [id number] Amb[place] 3 [facility] ing:LAB.FUTUR Repository E 07/16/2018 [id number] Ambulatory [place] 6 [facility] ing:LAB.FUTUR Repository E 07/13/2018/ [id number] Ambulatory BMSBuilding:B [place] 9 0 [facility] Repository 06/25/2018 [id number] Ambulatory [place] 5 [facility] ing:LAB.FUTUR Repository E 04/09/2018 [id number] Ambulatory [place] 0 [facility] Hospital ing:LAB.FUTUR Repository E 02/16/2018 [id number] Ambulatory [place] 8 [facility] Hospital ing:LAB.FUTUR Repository E 02/15/2018 [id number] Ambulatory [place] 3 [facility] Hospital ing:LAB.FUTUR Repository E 12/22/2017 [id number] Ambulatory [place] 2 [facility] ing:LAB.FUTUR Repository E 11/03/2017/ [id number] Ambulatory BMSBuilding:B [place] 8 2 [facility] Repository 09/16/2017 [id number] Ambulatory [place] 1 [facility] ing:LAB.FUTUR Repository E PAYERS PAYERS ENCOUNTER GUARANTOR PAYER SUBSCRIBER SOURCE 07/26/2018 LORRIE Salazar Primary NOT GIVENUNK [place] [id number] Insurance:SELF PAY [facility] Number: Effective Repository , [place] [address]Wvt: Date:2018-07-26 () 07/21/2018 LORRIE Salazar Primary NOT GIVENUNK [place] [id number] Insurance:SELF PAY [facility] Number: Effective Repository , [place] [address]Oid: Date:2018-07-21 () 07/19/2018 LORRIE D Primary NOT GIVENUNK [place] [id number] Insurance:SELF PAY [facility] Number: Effective Repository , [place] [address]Lzl: Date:2018-07-19 () 07/16/2018 LORRIE D Primary NOT GIVENUNK [place] [id number] Insurance:SELF PAY [facility] Number: Effective Repository , [place] [address]Ptd: Date:2018-04-19 () 07/13/2018 LORRIE D Primary NOT GIVENUNK [place] [id number] Insurance:SELF PAY [facility] Number: Effective Repository , [place] [address]Tia: Date:2018-07-13 () 06/25/2018 LORRIE D Primary NOT GIVENUNK [place] [id number] Insurance:SELF PAY [facility] Number: Effective Repository , [place] [address]Tfx: Date:2018-06-24 () 04/09/2018 LORRIE D Primary NOT GIVENUNK [place] [id number] Insurance:SELF PAY [facility] Number: Effective Repository , [place] [address]Tef: Date:2018-03-16 () 02/16/2018 LORRIE D Primary NOT GIVENUNK [place] [id number] Insurance:SELF PAY [facility] Number: Effective Repository , [place] [address]Lpx: Date:2018-02-15 () 02/15/2018 LORRIE Primary NOT GIVENUNK [place] [id number] Insurance:SELF PAY [facility] Number: Effective Repository , [place] [address]Evs: Date:2018-02-15 () 12/22/2017 LORRIE Primary NOT GIVENUNK [place] [id number] Insurance:SELF PAY [facility] Number: Effective Repository , [place] [address]Xne: Date:2017-12-22 () 11/03/2017 LORRIE Primary NOT GIVENUNK [place] [id number] Insurance:SELF PAY [facility] Number: Effective Repository , [place] [address]Cej: Date:2017-11-03 ~330 -4 () 09/16/2017 Lorrie Primary NOT GIVENUNK [place] [id number] Insurance:SELF PAY [facility] Number: Effective Repository , [place] [address]Iuu: Date:2017-09-07 ()
== END ==
PROVIDERS: Family Provider Family Medicine; PCP Family Medicine; Referring Provider Internal Medicine Nephrology; Visit Provider Internal Medicine Nephrology
DX: N17.9 Acute kidney failure, unspecified (principal)
CPT/HCPCS: 36415; 80069

== ENCOUNTER → 2018-08-27 15:08 | Outpatient (CLI) | payer SELFPAY ==
[2018-07-13 14:22] VITALS: BMI 26.2
[2018-08-27 16:18] LABS: Hemoglobin A1c 7.1 % (4.2-6.3)
[2018-08-27 16:36] LABS: Albumin, Serum 1.5 g/dL (3.2-5.0); BUN 11 mg/dL (7-18); BUN/Creat Ratio 16.9 RATIO (10-20); Calcium,Total 7.9 mg/dL (8.5-10.1); Chloride 103 mmol/L (98-107); Creatinine, Serum 0.65 mg/dL (0.70-1.30); EST Glomerular Filtration Rate 156 mL/min (>60); Est Glom Filt Rate - Afr Amer 189 mL/min (>60); Glucose 234 mg/dL (74-106); Phosphorus 2.2 mg/dL (2.5-4.9); Potassium 3.9 mmol/L (3.5-5.1); Sodium Level 138 mmol/L (136-145)
== END ==
PROVIDERS: Nurse Practitioner; Family Provider Family Medicine; PCP Family Medicine; Referring Provider Internal Medicine Nephrology; Visit Provider Internal Medicine Nephrology
DX: E10.9 Type 1 diabetes mellitus without complications (principal); N40.0 Benign prostatic hyperplasia without lower urinary tract symptoms
CPT/HCPCS: 36415; 80069; 83036

== ENCOUNTER → 2018-08-31 13:26 | Outpatient (CLI) | payer SELFPAY ==
[2018-07-13 14:22] VITALS: BMI 26.2
[2018-08-31 13:51] LABS: Protein, Urine (Random) 65.9 mg/dL (<11.9); Protein:Creat Ratio 1348 mg/g CRE (0-200)
== END ==
PROVIDERS: Family Provider Family Medicine; PCP Family Medicine; Visit Provider Internal Medicine Nephrology
DX: N04.0 Nephrotic syndrome with minor glomerular abnormality (principal)
CPT/HCPCS: 82570; 84156

== ENCOUNTER → 2018-09-16 15:08 | Outpatient (CLI) | payer SELFPAY ==
[2018-07-13 14:22] VITALS: BMI 26.2
[2018-09-16 16:34] LABS: Protein, Urine (Random) 56.5 mg/dL (<11.9); Protein:Creat Ratio 774 mg/g CRE (0-200)
[2018-09-16 16:36] LABS: Albumin, Serum 3.3 g/dL (3.2-5.0); BUN 9 mg/dL (7-18); BUN/Creat Ratio 11.5 RATIO (10-20); Calcium,Total 8.4 mg/dL (8.5-10.1); Chloride 105 mmol/L (98-107); Creatinine, Serum 0.78 mg/dL (0.70-1.30); EST Glomerular Filtration Rate 126 mL/min (>60); Est Glom Filt Rate - Afr Amer 153 mL/min (>60); Glucose 156 mg/dL (74-106); Potassium 3.5 mmol/L (3.5-5.1); Sodium Level 137 mmol/L (136-145)
== END ==
PROVIDERS: Family Provider Family Medicine; PCP Family Medicine; Referring Provider Internal Medicine Nephrology; Visit Provider Internal Medicine Nephrology
DX: N04.0 Nephrotic syndrome with minor glomerular abnormality (principal)
CPT/HCPCS: 36415; 80069; 82570; 84156

== ENCOUNTER → 2018-10-20 | Outpatient (CLI) | payer SELFPAY ==
[2018-07-13 14:22] VITALS: BMI 26.2
[2018-10-20 16:47] LABS: Albumin, Serum 3.6 g/dL (3.2-5.0); BUN 9 mg/dL (7-18); Calcium,Total 8.6 mg/dL (8.5-10.1); Chloride 103 mmol/L (98-107); EST Glomerular Filtration Rate 108 mL/min (>60); Est Glom Filt Rate - Afr Amer 130 mL/min (>60); Glucose 173 mg/dL (74-106); Phosphorus 3.2 mg/dL (2.5-4.9); Potassium 3.7 mmol/L (3.5-5.1); Sodium Level 138 mmol/L (136-145)
[2018-10-20 16:50] LABS: Protein, Urine (Random) 110.8 mg/dL (<11.9); Protein:Creat Ratio 449 mg/g CRE (0-200)
== END | disposition home or self-care (01) ==
LOC: LAB.FUTURE 15:39
PROVIDERS: Family Provider Family Medicine; PCP Family Medicine; Referring Provider Internal Medicine Nephrology; Visit Provider Internal Medicine Nephrology
DX: N04.0 Nephrotic syndrome with minor glomerular abnormality (principal)
CPT/HCPCS: 36415; 80069; 82570; 84156

== ENCOUNTER → 2018-11-17 | Outpatient (CLI) | payer SELFPAY ==
[2018-07-13 14:22] VITALS: BMI 26.2
[2018-11-17 16:51] LABS: Anion Gap 8 (5-15); BUN 11 mg/dL (7-18); BUN/Creat Ratio 14.8 RATIO (10-20); Calcium,Total 9.2 mg/dL (8.5-10.1); Chloride 107 mmol/L (98-107); Creatinine, Serum 0.74 mg/dL (0.70-1.30); EST Glomerular Filtration Rate 134 mL/min (>60); Est Glom Filt Rate - Afr Amer 162 mL/min (>60); Glucose 159 mg/dL (74-106); Potassium 3.5 mmol/L (3.5-5.1); Sodium Level 142 mmol/L (136-145)
== END | disposition home or self-care (01) ==
LOC: LAB.FUTURE 15:36
PROVIDERS: Family Provider Family Medicine; PCP Family Medicine; Referring Provider Internal Medicine Nephrology; Visit Provider Internal Medicine Nephrology
DX: N04.9 Nephrotic syndrome with unspecified morphologic changes (principal)
CPT/HCPCS: 36415; 80048; 82570; 84156

== ENCOUNTER → 2018-11-22 | Outpatient (CLI) | payer SELFPAY ==
[2018-07-13 14:22] VITALS: BMI 26.2
[2018-11-22 13:19] LABS: Protein, Urine (Random) 27.3 mg/dL (<11.9); Protein:Creat Ratio 451 mg/g CRE (0-200)
== END | disposition home or self-care (01) ==
LOC: LAB.FUTURE 09:39
PROVIDERS: Family Provider Family Medicine; PCP Family Medicine; Referring Provider Internal Medicine Nephrology; Visit Provider Internal Medicine Nephrology
DX: N04.9 Nephrotic syndrome with unspecified morphologic changes (principal)
CPT/HCPCS: 82570; 84156

== ENCOUNTER 2018-12-21 12:31 | Outpatient (RCR) | payer SELFPAY ==
[2018-07-13 14:22] VITALS: BMI 26.2
[2018-12-21 13:32] LABS: Protein, Urine (Random) 46.8 mg/dL (<11.9); Protein:Creat Ratio 296 mg/g CRE (0-200)
== END 2018-12-21 13:00 | disposition home or self-care (01) ==
LOC: LAB 12:31
PROVIDERS: Family Provider Family Medicine; PCP Family Medicine; Referring Provider Internal Medicine Nephrology; Visit Provider Internal Medicine Nephrology
DX: N04.9 Nephrotic syndrome with unspecified morphologic changes (principal); N04.0 Nephrotic syndrome with minor glomerular abnormality
CPT/HCPCS: 36415; 82570; 84156

== ENCOUNTER → 2019-02-14 16:22 | Outpatient (CLI) | payer SELFPAY ==
[2018-07-13 14:22] VITALS: BMI 26.2
[2019-02-14 17:00] LABS: Protein:Creat Ratio 262 mg/g CRE (0-200)
[2019-02-14 17:48] LABS: Albumin, Serum 3.9 g/dL (3.2-5.0); BUN 14 mg/dL (7-18); BUN/Creat Ratio 18.5 RATIO (10-20); Calcium,Total 9.1 mg/dL (8.5-10.1); Chloride 104 mmol/L (98-107); Creatinine, Serum 0.76 mg/dL (0.70-1.30); EST Glomerular Filtration Rate 131 mL/min (>60); Est Glom Filt Rate - Afr Amer 158 mL/min (>60); Glucose 146 mg/dL (74-106); Phosphorus 4.1 mg/dL (2.5-4.9); Potassium 3.6 mmol/L (3.5-5.1); Sodium Level 139 mmol/L (136-145)
== END ==
PROVIDERS: Family Provider Family Medicine; PCP Family Medicine; Referring Provider Internal Medicine Nephrology; Visit Provider Internal Medicine Nephrology
DX: N04.9 Nephrotic syndrome with unspecified morphologic changes (principal); N04.0 Nephrotic syndrome with minor glomerular abnormality
CPT/HCPCS: 36415; 80069; 82570; 84156

== ENCOUNTER 2019-03-31 11:47 | Outpatient (RCR) | payer SELFPAY ==
[2018-07-13 14:22] VITALS: BMI 26.2
[2019-03-29 10:03] LABS: Albumin, Serum 1.4 g/dL (3.2-5.0); BUN 61 mg/dL (7-18); BUN/Creat Ratio 22.8 RATIO (10-20); Calcium,Total 7.5 mg/dL (8.5-10.1); Chloride 95 mmol/L (98-107); Creatinine, Serum 2.67 mg/dL (0.70-1.30); EST Glomerular Filtration Rate 31 mL/min (>60); Est Glom Filt Rate - Afr Amer 37 mL/min (>60); Glucose 256 mg/dL (74-106); Phosphorus 4.2 mg/dL (2.5-4.9); Potassium 4.5 mmol/L (3.5-5.1); Sodium Level 127 mmol/L (136-145)
[2019-03-29 10:15] LABS: Protein, Urine (Random) 1640.8 mg/dL (<11.9); Protein:Creat Ratio 3376 mg/g CRE (0-200)
[2019-03-30 13:00] LABS: Anion Gap 8 (5-15); BUN 82 mg/dL (7-18); BUN/Creat Ratio 44.6 RATIO (10-20); Calcium,Total 7.5 mg/dL (8.5-10.1); Chloride 100 mmol/L (98-107); Creatinine, Serum 1.84 mg/dL (0.70-1.30); EST Glomerular Filtration Rate 47 mL/min (>60); Est Glom Filt Rate - Afr Amer 57 mL/min (>60); Glucose 122 mg/dL (74-106); Potassium 4.3 mmol/L (3.5-5.1); Sodium Level 133 mmol/L (136-145)
[2019-03-31 13:10] LABS: Anion Gap 10 (5-15); BUN 95 mg/dL (7-18); BUN/Creat Ratio 67.4 RATIO (10-20); Calcium,Total 7.7 mg/dL (8.5-10.1); Chloride 102 mmol/L (98-107); Creatinine, Serum 1.41 mg/dL (0.70-1.30); EST Glomerular Filtration Rate 64 mL/min (>60); Est Glom Filt Rate - Afr Amer 77 mL/min (>60); Glucose 129 mg/dL (74-106); Potassium 4.5 mmol/L (3.5-5.1); Sodium Level 133 mmol/L (136-145)
== END 2019-03-31 13:00 | disposition home or self-care (01) ==
LOC: LAB 11:47
PROVIDERS: Family Provider Family Medicine; PCP Family Medicine; Referring Provider Internal Medicine Nephrology; Visit Provider Internal Medicine Nephrology
DX: N17.9 Acute kidney failure, unspecified (principal); E87.1 Hypo-osmolality and hyponatremia; N04.0 Nephrotic syndrome with minor glomerular abnormality
CPT/HCPCS: 36415; 80048; 80069; 82570; 84156

== ENCOUNTER 2019-04-09 11:30 | Outpatient (RCR) | payer SELFPAY ==
[2018-07-13 14:22] VITALS: BMI 26.2
[2019-04-05 13:59] LABS: Protein, Urine (Random) 1174.3 mg/dL (<11.9); Protein:Creat Ratio 8099 mg/g CRE (0-200)
[2019-04-05 14:09] LABS: Anion Gap 9 (5-15); BUN 135 mg/dL (7-18); BUN/Creat Ratio 80.4 RATIO (10-20); Calcium,Total 7.7 mg/dL (8.5-10.1); Chloride 104 mmol/L (98-107); Creatinine, Serum 1.68 mg/dL (0.70-1.30); EST Glomerular Filtration Rate 52 mL/min (>60); Est Glom Filt Rate - Afr Amer 63 mL/min (>60); Glucose 177 mg/dL (74-106); Potassium 4.2 mmol/L (3.5-5.1); Sodium Level 135 mmol/L (136-145)
[2019-04-09 12:16] LABS: Anion Gap 7 (5-15); BUN 92 mg/dL (7-18); BUN/Creat Ratio 82.9 RATIO (10-20); Calcium,Total 7.5 mg/dL (8.5-10.1); Chloride 105 mmol/L (98-107); Creatinine, Serum 1.11 mg/dL (0.70-1.30); EST Glomerular Filtration Rate 84 mL/min (>60); Est Glom Filt Rate - Afr Amer 102 mL/min (>60); Glucose 254 mg/dL (74-106); Potassium 4.8 mmol/L (3.5-5.1); Sodium Level 135 mmol/L (136-145)
[2019-04-09 12:25] LABS: Protein, Urine (Random) 958.8 mg/dL (<11.9); Protein:Creat Ratio 11852 mg/g CRE (0-200)
[2019-04-18 08:15] LABS: Protein, Urine (Random) 1198.7 mg/dL (<11.9); Protein:Creat Ratio 10245 mg/g CRE (0-200)
[2019-04-18 08:26] LABS: BUN 80 mg/dL (7-18); Creatinine, Serum 1.31 mg/dL (0.70-1.30); EST Glomerular Filtration Rate 69 mL/min (>60); Est Glom Filt Rate - Afr Amer 84 mL/min (>60)
== END 2019-04-09 18:00 | disposition home or self-care (01) ==
LOC: LAB 11:30
PROVIDERS: Family Provider Family Medicine; PCP Family Medicine; Referring Provider Internal Medicine Nephrology; Visit Provider Internal Medicine Nephrology
DX: N04.9 Nephrotic syndrome with unspecified morphologic changes (principal); E87.1 Hypo-osmolality and hyponatremia
CPT/HCPCS: 36415; 80048; 82565; 82570; 84156; 84520

== ENCOUNTER 2019-04-18 07:24 | Outpatient (RCR) | payer SELFPAY ==
[2018-07-13 14:22] VITALS: BMI 26.2
== END 2019-04-18 07:25 | disposition home or self-care (01) ==
LOC: LAB 07:24
PROVIDERS: Family Provider Family Medicine; PCP Family Medicine; Referring Provider Internal Medicine Nephrology; Visit Provider Internal Medicine Nephrology
DX: N04.9 Nephrotic syndrome with unspecified morphologic changes (principal); N04.0 Nephrotic syndrome with minor glomerular abnormality
CPT/HCPCS: 36415; 80048; 82570; 84156

== ENCOUNTER → 2019-04-26 | Outpatient (CLI) | payer SELFPAY ==
[2018-07-13 14:22] VITALS: BMI 26.2
[2019-04-26 13:18] LABS: Albumin, Serum 0.5 g/dL (3.2-5.0); BUN 69 mg/dL (7-18); BUN/Creat Ratio 49.3 RATIO (10-20); Calcium,Total 7.9 mg/dL (8.5-10.1); Chloride 101 mmol/L (98-107); EST Glomerular Filtration Rate 64 mL/min (>60); Est Glom Filt Rate - Afr Amer 78 mL/min (>60); Glucose 166 mg/dL (74-106); Phosphorus 4.2 mg/dL (2.5-4.9); Sodium Level 130 mmol/L (136-145)
[2019-04-26 13:19] LABS: Protein, Urine (Random) 586.7 mg/dL (<11.9); Protein:Creat Ratio 9961 mg/g CRE (0-200)
== END | disposition home or self-care (01) ==
LOC: POLAB3 11:52
PROVIDERS: Family Provider Family Medicine; PCP Family Medicine; Visit Provider Internal Medicine Nephrology
DX: N04.0 Nephrotic syndrome with minor glomerular abnormality (principal)
CPT/HCPCS: 36415; 80069; 82570; 84156

== ENCOUNTER → 2019-05-04 | Outpatient (CLI) | payer SELFPAY ==
[2018-07-13 14:22] VITALS: BMI 26.2
== END | disposition home or self-care (01) ==
LOC: LAB.FUTURE 17:19
PROVIDERS: Family Provider Family Medicine; PCP Family Medicine; Visit Provider Internal Medicine Nephrology
DX: N04.9 Nephrotic syndrome with unspecified morphologic changes (principal)

== ENCOUNTER 2019-05-09 13:53 | Outpatient (RCR) | payer SELFPAY ==
[2018-07-13 14:22] VITALS: BMI 26.2
[2019-05-09 15:49] LABS: BUN 9 mg/dL (7-18); Creatinine, Serum 0.61 mg/dL (0.70-1.30); EST Glomerular Filtration Rate 168 mL/min (>60); Est Glom Filt Rate - Afr Amer 203 mL/min (>60)
== END 2019-05-09 18:00 | disposition home or self-care (01) ==
LOC: LAB 13:53
PROVIDERS: Family Provider Family Medicine; PCP Family Medicine; Referring Provider Internal Medicine Nephrology; Visit Provider Internal Medicine Nephrology
DX: N04.9 Nephrotic syndrome with unspecified morphologic changes (principal)
CPT/HCPCS: 36415; 82565; 84520

== ENCOUNTER → 2019-05-17 | Outpatient (CLI) | payer SELFPAY ==
[2018-07-13 14:22] VITALS: BMI 26.2
[2019-05-17 11:53] LABS: Protein, Urine (Random) 302.4 mg/dL (<11.9); Protein:Creat Ratio 3371 mg/g CRE (0-200)
== END | disposition home or self-care (01) ==
LOC: POLAB3 10:49
PROVIDERS: Family Provider Family Medicine; PCP Family Medicine; Visit Provider Internal Medicine Nephrology
DX: N04.9 Nephrotic syndrome with unspecified morphologic changes (principal)
CPT/HCPCS: 82570; 84156

== ENCOUNTER 2019-06-23 16:34 | Outpatient (RCR) | payer SELFPAY ==
[2018-07-13 14:22] VITALS: BMI 26.2
[2019-06-23 17:53] LABS: Albumin, Serum 3.1 g/dL (3.2-5.0); BUN 8 mg/dL (7-18); BUN/Creat Ratio 11.6 RATIO (10-20); Calcium,Total 8.4 mg/dL (8.5-10.1); Chloride 104 mmol/L (98-107); Creatinine, Serum 0.69 mg/dL (0.70-1.30); EST Glomerular Filtration Rate 145 mL/min (>60); Est Glom Filt Rate - Afr Amer 175 mL/min (>60); Glucose 237 mg/dL (74-106); Phosphorus 3.2 mg/dL (2.5-4.9); Potassium 3.5 mmol/L (3.5-5.1); Sodium Level 137 mmol/L (136-145)
[2019-06-23 18:28] LABS: Protein, Urine (Random) 655.7 mg/dL (<11.9); Protein:Creat Ratio 2802 mg/g CRE (0-200)
== END 2019-06-23 18:00 | disposition home or self-care (01) ==
LOC: LAB 16:34
PROVIDERS: Family Provider Family Medicine; PCP Family Medicine; Referring Provider Internal Medicine Nephrology; Visit Provider Internal Medicine Nephrology
DX: N04.9 Nephrotic syndrome with unspecified morphologic changes (principal)
CPT/HCPCS: 36415; 80069; 82570; 84156

== ENCOUNTER 2019-07-08 06:25 | Outpatient (RCR) | payer SELFPAY ==
[2018-07-13 14:22] VITALS: BMI 26.2
[2019-07-08 07:49] LABS: Albumin, Serum 3.2 g/dL (3.2-5.0); BUN 12 mg/dL (7-18); BUN/Creat Ratio 15.9 RATIO (10-20); Calcium,Total 8.9 mg/dL (8.5-10.1); Chloride 106 mmol/L (98-107); Creatinine, Serum 0.76 mg/dL (0.70-1.30); EST Glomerular Filtration Rate 130 mL/min (>60); Est Glom Filt Rate - Afr Amer 158 mL/min (>60); Glucose 256 mg/dL (74-106); Phosphorus 2.9 mg/dL (2.5-4.9); Potassium 3.8 mmol/L (3.5-5.1); Sodium Level 139 mmol/L (136-145)
[2019-07-08 08:01] LABS: Protein, Urine (Random) 118.3 mg/dL (<11.9); Protein:Creat Ratio 2302 mg/g CRE (0-200)
== END 2019-07-08 18:00 | disposition home or self-care (01) ==
LOC: LAB 06:25
PROVIDERS: Family Provider Family Medicine; PCP Family Medicine; Referring Provider Internal Medicine Nephrology; Visit Provider Internal Medicine Nephrology
DX: N04.9 Nephrotic syndrome with unspecified morphologic changes (principal)
CPT/HCPCS: 36415; 80069; 82570; 84156

== ENCOUNTER 2019-08-10 07:24 | Outpatient (RCR) | payer SELFPAY ==
[2018-07-13 14:22] VITALS: BMI 26.2
[2019-08-10 08:00] LABS: Albumin, Serum 3.4 g/dL (3.2-5.0); BUN 13 mg/dL (7-18); BUN/Creat Ratio 18.2 RATIO (10-20); Calcium,Total 9.1 mg/dL (8.5-10.1); Chloride 109 mmol/L (98-107); Creatinine, Serum 0.71 mg/dL (0.70-1.30); EST Glomerular Filtration Rate 139 mL/min (>60); Est Glom Filt Rate - Afr Amer 169 mL/min (>60); Glucose 126 mg/dL (74-106); Phosphorus 3.1 mg/dL (2.5-4.9); Potassium 3.7 mmol/L (3.5-5.1); Sodium Level 139 mmol/L (136-145)
== END 2019-08-10 18:00 | disposition home or self-care (01) ==
LOC: LAB 07:24
PROVIDERS: Family Provider Family Medicine; PCP Family Medicine; Referring Provider Internal Medicine Nephrology; Visit Provider Internal Medicine Nephrology
DX: N04.9 Nephrotic syndrome with unspecified morphologic changes (principal)
CPT/HCPCS: 36415; 80069

== ENCOUNTER → 2019-09-21 07:46 | Outpatient (CLI) | payer SELFPAY ==
[2018-07-13 14:22] VITALS: BMI 26.2
[2019-09-21 08:23] LABS: Protein, Urine (Random) 71.9 mg/dL (<11.9); Protein:Creat Ratio 1179 mg/g CRE (0-200)
[2019-09-21 08:37] LABS: Albumin, Serum 3.7 g/dL (3.2-5.0); BUN 11 mg/dL (7-18); BUN/Creat Ratio 14.5 RATIO (10-20); Calcium,Total 9.1 mg/dL (8.5-10.1); Chloride 105 mmol/L (98-107); Creatinine, Serum 0.76 mg/dL (0.70-1.30); EST Glomerular Filtration Rate 130 mL/min (>60); Est Glom Filt Rate - Afr Amer 157 mL/min (>60); Glucose 204 mg/dL (74-106); Phosphorus 2.8 mg/dL (2.5-4.9); Potassium 3.7 mmol/L (3.5-5.1); Sodium Level 137 mmol/L (136-145)
== END ==
PROVIDERS: Family Provider Family Medicine; PCP Family Medicine; Referring Provider Internal Medicine Nephrology; Visit Provider Internal Medicine Nephrology
DX: N04.9 Nephrotic syndrome with unspecified morphologic changes (principal)
CPT/HCPCS: 36415; 80069; 82570; 84156

== ENCOUNTER → 2020-03-15 08:40 | Outpatient (CLI) | payer SELFPAY ==
[2018-07-13 14:22] VITALS: BMI 26.2
[2020-03-15 09:31] LABS: Protein, Urine (Random) 24.7 mg/dL (<11.9); Protein:Creat Ratio 492 mg/g CRE (0-200)
[2020-03-15 09:37] LABS: Albumin, Serum 3.8 g/dL (3.2-5.0); BUN 12 mg/dL (7-18); BUN/Creat Ratio 18.3 RATIO (10-20); Calcium,Total 8.9 mg/dL (8.5-10.1); Chloride 106 mmol/L (98-107); Creatinine, Serum 0.66 mg/dL (0.70-1.30); EST Glomerular Filtration Rate 153 mL/min (>60); Est Glom Filt Rate - Afr Amer 185 mL/min (>60); Glucose 141 mg/dL (74-106); Potassium 3.6 mmol/L (3.5-5.1); Sodium Level 139 mmol/L (136-145)
== END ==
PROVIDERS: PCP Family Medicine; Referring Provider Internal Medicine Nephrology; Visit Provider Internal Medicine Nephrology
DX: N04.9 Nephrotic syndrome with unspecified morphologic changes (principal)
CPT/HCPCS: 36415; 80069; 82570; 84156

== ENCOUNTER → 2020-05-30 16:22 | Outpatient (CLI) | payer SELFPAY ==
[2018-07-13 14:22] VITALS: BMI 26.2
[2020-05-30 17:36] LABS: Protein:Creat Ratio 471 mg/g CRE (0-200)
== END ==
PROVIDERS: PCP Family Medicine; Visit Provider Internal Medicine Nephrology
DX: N04.9 Nephrotic syndrome with unspecified morphologic changes (principal)
CPT/HCPCS: 36415; 82570; 84156

== ENCOUNTER → 2020-07-27 10:13 | Outpatient (CLI) | payer SELFPAY ==
[2018-07-13 14:22] VITALS: BMI 26.2
[2020-07-27 11:45] LABS: Protein, Urine (Random) 10.8 mg/dL (<11.9); Protein:Creat Ratio 391 mg/g CRE (0-200)
[2020-07-27 12:08] LABS: Albumin, Serum 3.7 g/dL (3.2-5.0); BUN 12 mg/dL (7-18); BUN/Creat Ratio 16.5 RATIO (10-20); Calcium,Total 8.8 mg/dL (8.5-10.1); Chloride 108 mmol/L (98-107); Creatinine, Serum 0.73 mg/dL (0.70-1.30); EST Glomerular Filtration Rate 136 mL/min (>60); Est Glom Filt Rate - Afr Amer 164 mL/min (>60); Glucose 160 mg/dL (74-106); Phosphorus 2.7 mg/dL (2.5-4.9); Potassium 3.9 mmol/L (3.5-5.1); Sodium Level 139 mmol/L (136-145)
== END ==
PROVIDERS: PCP Family Medicine; Referring Provider Internal Medicine Nephrology; Visit Provider Internal Medicine Nephrology
DX: N04.9 Nephrotic syndrome with unspecified morphologic changes (principal)
CPT/HCPCS: 36415; 80069; 82570; 84156

== ENCOUNTER → 2020-11-01 15:17 | Outpatient (CLI) | payer SELFPAY ==
[2018-07-13 14:22] VITALS: BMI 26.2
[2020-11-01 17:44] LABS: Protein, Urine (Random) 914.6 mg/dL (<11.9); Protein:Creat Ratio 6396 mg/g CRE (0-200)
== END ==
PROVIDERS: PCP Family Medicine; Visit Provider Internal Medicine Nephrology
DX: N04.9 Nephrotic syndrome with unspecified morphologic changes (principal)
CPT/HCPCS: 82570; 84156

== ENCOUNTER → 2020-11-08 11:37 | Outpatient (CLI) | payer SELFPAY ==
[2018-07-13 14:22] VITALS: BMI 26.2
[2020-11-08 12:30] LABS: BUN 17 mg/dL (7-18); BUN/Creat Ratio 26.5 RATIO (10-20); Calcium,Total 8.1 mg/dL (8.5-10.1); Chloride 102 mmol/L (98-107); Creatinine, Serum 0.64 mg/dL (0.70-1.30); EST Glomerular Filtration Rate 156 mL/min (>60); Est Glom Filt Rate - Afr Amer 189 mL/min (>60); Glucose 197 mg/dL (74-106); Phosphorus 3.4 mg/dL (2.5-4.9); Potassium 4.7 mmol/L (3.5-5.1); Sodium Level 138 mmol/L (136-145)
== END ==
PROVIDERS: PCP Family Medicine; Visit Provider Internal Medicine Nephrology
DX: N04.9 Nephrotic syndrome with unspecified morphologic changes (principal)
CPT/HCPCS: 36415; 80069

== ENCOUNTER → 2020-12-10 15:43 | Outpatient (CLI) | payer SELFPAY ==
[2018-07-13 14:22] VITALS: BMI 26.2
[2020-12-10 17:40] LABS: Protein, Urine (Random) 37.1 mg/dL (<11.9); Protein:Creat Ratio 767 mg/g CRE (0-200)
[2020-12-10 17:47] LABS: Albumin, Serum 3.7 g/dL (3.2-5.0); BUN 12 mg/dL (7-18); Calcium,Total 9.4 mg/dL (8.5-10.1); Chloride 102 mmol/L (98-107); Creatinine, Serum 0.75 mg/dL (0.70-1.30); EST Glomerular Filtration Rate 131 mL/min (>60); Est Glom Filt Rate - Afr Amer 158 mL/min (>60); Glucose 281 mg/dL (74-106); Phosphorus 2.4 mg/dL (2.5-4.9); Potassium 3.9 mmol/L (3.5-5.1); Sodium Level 135 mmol/L (136-145)
== END ==
PROVIDERS: PCP Family Medicine; Referring Provider Internal Medicine Nephrology; Visit Provider Internal Medicine Nephrology
DX: N04.9 Nephrotic syndrome with unspecified morphologic changes (principal)
CPT/HCPCS: 36415; 80069; 82570; 84156

== ENCOUNTER → 2021-01-29 16:20 | Outpatient (CLI) | payer SELFPAY ==
[2018-07-13 14:22] VITALS: BMI 26.2
[2021-01-29 17:34] LABS: Albumin, Serum 4.1 g/dL (3.2-5.0); BUN 14 mg/dL (7-18); BUN/Creat Ratio 21.3 RATIO (10-20); Calcium,Total 8.9 mg/dL (8.5-10.1); Chloride 104 mmol/L (98-107); Creatinine, Serum 0.66 mg/dL (0.70-1.30); EST Glomerular Filtration Rate 152 mL/min (>60); Est Glom Filt Rate - Afr Amer 183 mL/min (>60); Glucose 142 mg/dL (74-106); Potassium 3.5 mmol/L (3.5-5.1); Sodium Level 137 mmol/L (136-145)
== END ==
PROVIDERS: PCP Family Medicine; Visit Provider Internal Medicine Nephrology
DX: N04.9 Nephrotic syndrome with unspecified morphologic changes (principal)
CPT/HCPCS: 36415; 80069

== ENCOUNTER → 2021-02-21 15:42 | Outpatient (CLI) | payer SELFPAY ==
[2018-07-13 14:22] VITALS: BMI 26.2
[2021-02-21 17:37] LABS: Albumin, Serum 4.2 g/dL (3.2-5.0); BUN 12 mg/dL (7-18); BUN/Creat Ratio 17.4 RATIO (10-20); Calcium,Total 9.2 mg/dL (8.5-10.1); Chloride 103 mmol/L (98-107); Creatinine, Serum 0.69 mg/dL (0.70-1.30); EST Glomerular Filtration Rate 143 mL/min (>60); Est Glom Filt Rate - Afr Amer 174 mL/min (>60); Glucose 166 mg/dL (74-106); Potassium 3.8 mmol/L (3.5-5.1); Sodium Level 136 mmol/L (136-145)
== END ==
PROVIDERS: PCP Family Medicine; Visit Provider Internal Medicine Nephrology
DX: N04.9 Nephrotic syndrome with unspecified morphologic changes (principal)
CPT/HCPCS: 36415; 80069

== ENCOUNTER → 2021-02-28 11:00 | Outpatient (CLI) | payer SELFPAY ==
[2021-02-28 13:02] LABS: Protein, Urine (Random) 36.9 mg/dL (<11.9); Protein:Creat Ratio 269 mg/g CRE (0-200)
== END ==
PROVIDERS: PCP Family Medicine; Visit Provider Internal Medicine Nephrology
DX: N04.9 Nephrotic syndrome with unspecified morphologic changes (principal)
CPT/HCPCS: 82570; 84156

== ENCOUNTER → 2021-04-15 16:01 | Outpatient (CLI) | payer SELFPAY ==
[2021-04-15 17:52] LABS: Protein, Urine (Random) 21.7 mg/dL (<11.9); Protein:Creat Ratio 457 mg/g CRE (0-200)
== END ==
PROVIDERS: PCP Family Medicine; Referring Provider Internal Medicine Nephrology; Visit Provider Internal Medicine Nephrology
DX: N04.9 Nephrotic syndrome with unspecified morphologic changes (principal)
CPT/HCPCS: 82570; 84156

== ENCOUNTER → 2021-06-03 16:07 | Outpatient (CLI) | payer SELFPAY ==
[2021-06-03 17:48] LABS: Creatinine, Serum 0.64 mg/dL (0.70-1.30); EST Glomerular Filtration Rate 156 mL/min (>60); Est Glom Filt Rate - Afr Amer 188 mL/min (>60)
[2021-06-03 17:53] LABS: Protein:Creat Ratio 456 mg/g CRE (0-200)
== END ==
PROVIDERS: PCP Family Medicine; Visit Provider Internal Medicine Nephrology
DX: N04.9 Nephrotic syndrome with unspecified morphologic changes (principal)
CPT/HCPCS: 36415; 82565; 82570; 84156

== ENCOUNTER 2021-10-16 16:33 | Outpatient (CLI) | payer SELFPAY ==
[2021-10-16 17:25] LABS: Protein, Urine (Random) 8.1 mg/dL (<11.9); Protein:Creat Ratio 379 mg/g CRE (0-200)
[2021-10-16 17:44] LABS: Albumin, Serum 4.3 g/dL (3.2-5.0); BUN 13 mg/dL (7-18); BUN/Creat Ratio 19.4 RATIO (10-20); Calcium,Total 9.1 mg/dL (8.5-10.1); Chloride 103 mmol/L (98-107); Creatinine, Serum 0.67 mg/dL (0.70-1.30); EST Glomerular Filtration Rate 148 mL/min (>60); Est Glom Filt Rate - Afr Amer 179 mL/min (>60); Glucose 94 mg/dL (74-106); Potassium 3.5 mmol/L (3.5-5.1); Sodium Level 137 mmol/L (136-145)
== END 2021-10-16 23:59 | disposition home or self-care (01) ==
LOC: LAB 16:34
PROVIDERS: PCP Family Medicine; Visit Provider Internal Medicine Nephrology
DX: N04.0 Nephrotic syndrome with minor glomerular abnormality (principal)
CPT/HCPCS: 36415; 80069; 82570; 84156

== ENCOUNTER → 2022-03-07 | Outpatient (CLI) | payer SELFPAY ==
[2022-03-07 10:31] LABS: Protein, Urine (Random) 9.1 mg/dL (<11.9); Protein:Creat Ratio 136 mg/g CRE (0-200)
== END | disposition home or self-care (01) ==
LOC: LAB 08:56
PROVIDERS: PCP Family Medicine; Referring Provider Internal Medicine Nephrology; Visit Provider Internal Medicine Nephrology
DX: N04.9 Nephrotic syndrome with unspecified morphologic changes (principal)
CPT/HCPCS: 36415; 82570; 84156

== ENCOUNTER → 2022-06-02 | Outpatient (CLI) | payer SELFPAY ==
[2022-06-02 14:05] LABS: Protein, Urine (Random) 7.7 mg/dL (<11.9); Protein:Creat Ratio 200 mg/g CRE (0-200)
== END | disposition home or self-care (01) ==
PROVIDERS: PCP Family Medicine; Visit Provider Internal Medicine Nephrology
DX: N04.0 Nephrotic syndrome with minor glomerular abnormality (principal)
CPT/HCPCS: 36415; 82570; 84156

== ENCOUNTER → 2022-07-29 | Outpatient (CLI) | payer SELFPAY ==
[2022-07-29 14:57] LABS: Protein, Urine (Random) < 6.0 mg/dL (<11.9); Protein:Creat Ratio 192 mg/g CRE (0-200)
== END | disposition home or self-care (01) ==
PROVIDERS: PCP Family Medicine; Visit Provider Internal Medicine Nephrology
DX: N04.0 Nephrotic syndrome with minor glomerular abnormality (principal)
CPT/HCPCS: 82570; 84156

== ENCOUNTER → 2022-10-27 | Outpatient (CLI) | payer SELFPAY ==
[2022-10-27 16:27] LABS: Albumin, Serum 2.2 g/dL (3.2-5.0); BUN 11 mg/dL (7-18); BUN/Creat Ratio 18.9 RATIO (10-20); Calcium,Total 8.5 mg/dL (8.5-10.1); Chloride 108 mmol/L (98-107); Creatinine, Serum 0.58 mg/dL (0.70-1.30); EST Glomerular Filtration Rate 173 mL/min (>60); Est Glom Filt Rate - Afr Amer 209 mL/min (>60); Glucose 122 mg/dL (74-106); Phosphorus 3.5 mg/dL (2.5-4.9); Potassium 3.7 mmol/L (3.5-5.1); Sodium Level 138 mmol/L (136-145)
[2022-10-27 16:30] LABS: Protein, Urine (Random) 1014.3 mg/dL (<11.9); Protein:Creat Ratio 8383 mg/g CRE (0-200)
== END | disposition home or self-care (01) ==
PROVIDERS: PCP Family Medicine; Visit Provider Internal Medicine Nephrology
DX: N04.0 Nephrotic syndrome with minor glomerular abnormality (principal)
CPT/HCPCS: 36415; 80069; 82570; 84156

== ENCOUNTER → 2022-11-28 | Outpatient (CLI) | payer SELFPAY ==
[2022-11-28 10:05] LABS: Protein, Urine (Random) 20.2 mg/dL (<11.9); Protein:Creat Ratio 212 mg/g CRE (0-200)
== END | disposition home or self-care (01) ==
PROVIDERS: PCP Family Medicine; Visit Provider Internal Medicine Nephrology
DX: N04.9 Nephrotic syndrome with unspecified morphologic changes (principal)
CPT/HCPCS: 82570; 84156

== ENCOUNTER → 2023-02-17 | Outpatient (CLI) | payer SELFPAY ==
[2023-02-17 17:09] LABS: Creatinine, Serum 0.73 mg/dL (0.70-1.30); EST Glomerular Filtration Rate 132 mL/min (>60); Est Glom Filt Rate - Afr Amer 160 mL/min (>60)
[2023-02-17 17:17] LABS: Protein, Urine (Random) 19.7 mg/dL (<11.9); Protein:Creat Ratio 274 mg/g CRE (0-200)
== END | disposition home or self-care (01) ==
LOC: LAB 16:33
PROVIDERS: PCP Family Medicine; Referring Provider Internal Medicine Nephrology; Visit Provider Internal Medicine Nephrology
DX: N04.0 Nephrotic syndrome with minor glomerular abnormality (principal)
CPT/HCPCS: 36415; 82565; 82570; 84156

== ENCOUNTER → 2023-04-14 | Outpatient (CLI) | payer SELFPAY ==
[2023-04-14 16:24] LABS: Protein, Urine (Random) < 6.0 mg/dL (<11.9)
== END | disposition home or self-care (01) ==
PROVIDERS: PCP Family Medicine; Referring Provider Internal Medicine Nephrology; Visit Provider Internal Medicine Nephrology
DX: N04.0 Nephrotic syndrome with minor glomerular abnormality (principal)
CPT/HCPCS: 82570; 84156

== ENCOUNTER → 2023-08-04 | Outpatient (CLI) | payer SELFPAY ==
[2023-08-04 17:34] LABS: Protein, Urine (Random) 7.4 mg/dL (<11.9); Protein:Creat Ratio 231 mg/g CRE (0-200)
[2023-08-04 17:55] LABS: Anion Gap 5 (5-15); BUN 12 mg/dL (7-18); BUN/Creat Ratio 16.9 RATIO (10-20); Calcium,Total 9.5 mg/dL (8.5-10.1); Chloride 107 mmol/L (98-107); Creatinine, Serum 0.71 mg/dL (0.70-1.30); EST Glomerular Filtration Rate 137 mL/min (>60); Est Glom Filt Rate - Afr Amer 165 mL/min (>60); Glucose 124 mg/dL (74-106); Potassium 3.8 mmol/L (3.5-5.1); Sodium Level 137 mmol/L (136-145)
== END | disposition home or self-care (01) ==
LOC: LAB 16:18
PROVIDERS: PCP Family Medicine; Referring Provider Internal Medicine Nephrology; Visit Provider Internal Medicine Nephrology
DX: N04.0 Nephrotic syndrome with minor glomerular abnormality (principal)
CPT/HCPCS: 36415; 80048; 82570; 84156

== ENCOUNTER → 2023-12-21 | Outpatient (CLI) | payer SELFPAY ==
[2023-12-21 22:13] LABS: Protein, Urine (Random) 9.8 mg/dL (<11.9); Protein:Creat Ratio 305 mg/g CRE (0-200)
== END | disposition home or self-care (01) ==
PROVIDERS: PCP Family Medicine; Referring Provider Internal Medicine Nephrology; Visit Provider Internal Medicine Nephrology
DX: N04.9 Nephrotic syndrome with unspecified morphologic changes (principal)
CPT/HCPCS: 36415; 82570; 84156

== ENCOUNTER → 2024-02-11 | Outpatient (CLI) | payer SELFPAY ==
[2024-02-11 10:51] LABS: Protein, Urine (Random) 10.8 mg/dL (<11.9); Protein:Creat Ratio 99 mg/g CRE (0-200)
[2024-02-11 11:04] LABS: Anion Gap 6 (5-15); BUN 9 mg/dL (7-18); BUN/Creat Ratio 13.2 RATIO (10-20); Calcium,Total 8.9 mg/dL (8.5-10.1); Chloride 108 mmol/L (98-107); Creatinine, Serum 0.68 mg/dL (0.70-1.30); EST Glomerular Filtration Rate 143 mL/min (>60); Est Glom Filt Rate - Afr Amer 173 mL/min (>60); Glucose 165 mg/dL (74-106); Potassium 3.7 mmol/L (3.5-5.1); Sodium Level 141 mmol/L (136-145)
== END | disposition home or self-care (01) ==
PROVIDERS: PCP Family Medicine; Referring Provider Internal Medicine Nephrology; Visit Provider Internal Medicine Nephrology
DX: N04.0 Nephrotic syndrome with minor glomerular abnormality (principal)
CPT/HCPCS: 36415; 80048; 82570; 84156

== ENCOUNTER 2024-05-31 16:42 | Outpatient (RCR) | payer SELFPAY ==
[2024-05-31 17:17] LABS: Protein, Urine (Random) 546.5 mg/dL (<11.9); Protein:Creat Ratio 5306 mg/g CRE (0-200)
== END 2024-06-04 18:00 | disposition home or self-care (01) ==
LOC: LAB 16:42
PROVIDERS: PCP Family Medicine; Referring Provider Internal Medicine Nephrology; Visit Provider Internal Medicine Nephrology
DX: N04.0 Nephrotic syndrome with minor glomerular abnormality (principal)
CPT/HCPCS: 82570; 84156

== ENCOUNTER → 2024-06-20 | Outpatient (CLI) | payer SELFPAY ==
[2024-06-20 15:53] LABS: Protein, Urine (Random) 32.8 mg/dL (<11.9); Protein:Creat Ratio 434 mg/g CRE (0-200)
== END | disposition home or self-care (01) ==
PROVIDERS: PCP Family Medicine; Referring Provider Internal Medicine Nephrology; Visit Provider Internal Medicine Nephrology
DX: N04.9 Nephrotic syndrome with unspecified morphologic changes (principal)
CPT/HCPCS: 82570; 84156

== ENCOUNTER → 2024-08-25 | Outpatient (CLI) | payer SELFPAY ==
[2024-08-25 10:57] LABS: Anion Gap 4 (5-15); BUN 12 mg/dL (7-18); BUN/Creat Ratio 16.5 RATIO (10-20); Calcium,Total 9.5 mg/dL (8.5-10.1); Chloride 105 mmol/L (98-107); Creatinine, Serum 0.73 mg/dL (0.70-1.30); EST Glomerular Filtration Rate 132 mL/min (>60); Est Glom Filt Rate - Afr Amer 160 mL/min (>60); Glucose 210 mg/dL (74-106); Potassium 4.1 mmol/L (3.5-5.1); Sodium Level 137 mmol/L (136-145)
[2024-08-25 11:22] LABS: Protein:Creat Ratio 179 mg/g CRE (0-200)
== END | disposition home or self-care (01) ==
LOC: LAB 10:18
PROVIDERS: PCP Family Medicine; Referring Provider Internal Medicine Nephrology; Visit Provider Internal Medicine Nephrology
DX: N04.0 Nephrotic syndrome with minor glomerular abnormality (principal)
CPT/HCPCS: 36415; 80048; 82570; 84156

== ENCOUNTER → 2024-10-31 | Outpatient (CLI) | payer SELFPAY ==
[2024-10-31 17:45] LABS: Protein:Creat Ratio 4672 mg/g CRE (0-200)
== END | disposition home or self-care (01) ==
PROVIDERS: PCP Family Medicine; Referring Provider Internal Medicine Nephrology; Visit Provider Internal Medicine Nephrology
DX: N04.0 Nephrotic syndrome with minor glomerular abnormality (principal)
CPT/HCPCS: 82570; 84156

== ENCOUNTER → 2024-11-29 | Outpatient (CLI) | payer SELFPAY ==
[2024-11-29 18:19] LABS: Protein:Creat Ratio 3442 mg/g CRE (0-200)
[2024-11-29 18:42] LABS: Anion Gap 7 (5-15); BUN 14 mg/dL (4-19); BUN/Creat Ratio 20.4 RATIO (10-20); Calcium,Total 8.4 mg/dL (7.6-11.0); Carbon Dioxide 25.1 mmol/L (21.0-32.0); Chloride 105 mmol/L (98-108); Creatinine, Serum 0.68 mg/dL (0.70-1.20); EST Glomerular Filtration Rate 126 (>60); Glucose 271 mg/dL (70-99); Potassium 4.5 mmol/L (3.3-5.1); Sodium Level 138 mmol/L (133-145)
== END | disposition home or self-care (01) ==
PROVIDERS: PCP Family Medicine; Referring Provider Internal Medicine Nephrology; Visit Provider Internal Medicine Nephrology
DX: N04.0 Nephrotic syndrome with minor glomerular abnormality (principal)
CPT/HCPCS: 36415; 80048; 82570; 84156

== ENCOUNTER → 2025-03-20 | Outpatient (CLI) | payer SELFPAY ==
[2025-03-20 17:47] LABS: Creatinine, Urine (random) 76.40 mg/dL (39.00-259.00); Protein, Urine (Random) 26.2 mg/dL (0.0-12.0); Protein:Creat Ratio 343 mg/g CRE (0-200)
== END | disposition home or self-care (01) ==
LOC: LAB 15:55
PROVIDERS: PCP Family Medicine; Referring Provider Internal Medicine Nephrology; Visit Provider Internal Medicine Nephrology
DX: N04.0 Nephrotic syndrome with minor glomerular abnormality (principal)
CPT/HCPCS: 82570; 84156

== ENCOUNTER 2025-07-04 13:28 | Outpatient (RCR) | payer SELFPAY ==
[2025-07-04 14:56] LABS: Creatinine, Urine (random) 18.10 mg/dL (39.00-259.00); Protein, Urine (Random) 20.8 mg/dL (0.0-12.0); Protein:Creat Ratio 1149 mg/g CRE (0-200)
== END 2025-07-04 18:00 | disposition home or self-care (01) ==
LOC: LAB 13:28
PROVIDERS: Referring Provider Internal Medicine Nephrology; Visit Provider Internal Medicine Nephrology
DX: N04.9 Nephrotic syndrome with unspecified morphologic changes (principal)
CPT/HCPCS: 82570; 84156